=== PATIENT | female | born 1965 | race Caucasian/White ===

== ENCOUNTER 2016-12-01 12:56 | Observation (INO) ==
--- NOTE | 2016-12-01 13:19 | Emergency Department Note ---
Disposition Clinical Impression: Syncope Qualifiers: Syncope type: unspecified Qualified Code(s): R55 - Syncope and collapse Chest pain Qualifiers: Chest pain type: unspecified Qualified Code(s): R07.9 - Chest pain, unspecified Disposition: Admitted As Inpatient Condition: Fair Referrals: NONE,PCP [Primary Care Provider] - Forms: ED Satisfaction Letter Time of Disposition: 16:37 Syncope HPI - General Chief Complaint: ED Dizziness Stated Complaint: Dizzy Time Seen by Provider: 12/01/16 13:07 Source: patient, EMS Limitations: no limitations Nursing Notes Reviewed: Yes Vital Signs Reviewed: Yes - History of Present Illness HPI Narrative: 51-year-old who comes in with near syncopal episode while at work. Patient was seen here about a week ago for syncope 2. The patient was referred for follow- up but then had symptoms again today. Pt Subjective Complaint: felt faint, almost passed out Onset (ago): Just [employer]EST[employer] Prodromal Symptoms: lightheaded Witnessed: yes - by bystander Context: at rest Injuries Sustained Associated with Event: none Current Symptoms: back to baseline History: previous syncopal episode (A week ago) Treatments prior to arrival: none Associated trauma secondary to event: No - Related Data Previous Rx's Medication Instructions Recorded Hydrocodone/Acetaminophen [[place] 1 tab PO Q6H PRN #10 tab 01/13/15 5-325 Tablet] Ondansetron ODT [Zofran ODT] 4 mg SL Q4HR #7 tab.rapdis 01/13/15 Allergies Allergy/AdvReac Type Severity Reaction Status Date / Time albuterol Allergy Palpitation Verified 01/13/15 15:03 s Amoxicillin [From Augmentin] Allergy Anaphylaxis Verified 01/13/15 15:03 clavulanic acid Allergy Anaphylaxis Verified 01/13/15 15:03 [From Augmentin] metoclopramide [From Reglan] Allergy Confusion Verified 01/13/15 15:03 All systems ED: reviewed and negative except as stated. Constitutional: Denies: fever, chills, weakness, weight change Eyes: Denies: eye pain, eye discharge, vision change ENT ED: Denies: ear pain, throat pain, dental pain, hearing loss, epistaxis, congestion, dysphagia Cardiovascular: Reports: syncope. Denies: chest pain, palpitations, dyspnea on exertion, edema Respiratory: Denies: cough, dyspnea, wheezes, hemoptysis, stridor Gastrointestinal: Denies: abdominal pain, nausea, vomiting, diarrhea, constipation, hematemesis, melena, hematochezia Genitourinary: Denies: dysuria, frequency, hematuria, discharge Musculoskeletal: Denies: back pain, neck pain, arthralgia, myalgia Integumentary: Denies: rash, abrasion, lesions Neurological: Denies: headache, weakness, numbness, paresthesias, confusion, abnormal gait, vertigo Psychiatric: Denies: anxiety, depression, suicidal thoughts, homicidal thoughts , auditory hallucinations, visual hallucinations Endocrine: Denies: fatigue Hematological/Lymphatic: Denies: easy bleeding, easy bruising Allergic/Immunologic: Denies: facial swelling, urticaria Past Medical History - Past Medical History Medical history: Reports: hyperlipidemia, hypertension, migraine Surgical history: Reports: appendectomy, breast surgery, , cholecystectomy, hysterectomy Psychiatric history: Reports: anxiety, depression - Social History Smoking Status: Never smoker Smokeless Tobacco Status: No Alcohol use: Reports: none Drug use: Reports: none Physical Exam - General Limitations: no limitations General appearance: alert - Head Head exam: atraumatic, normocephalic, normal inspection - Eye Eye exam: Present: normal appearance, PERRL, EOMI - ENT ENT exam: normal exam, normal oropharynx, mucous membranes moist - Neck Neck exam: Present: normal inspection, full ROM, trachea midline - Chest Chest inspection: Present: normal inspection, symmetric chest wall rise - Respiratory Respiratory exam: Present: normal lung sounds bilaterally - Cardiovascular Cardiovascular exam: Present: regular rate, normal rhythm, normal heart sounds - Abdominal Exam Abdominal exam: Present: soft, Non-Tender. Absent: tenderness, distention, guarding, rebound, rigidity - Extremities Exam Extremities exam: Present: normal inspection, full ROM. Absent: tenderness, pedal edema - Expanded Lower Extremity Exam Neurovascular/Tendon exam: Absent: motor deficit, sensory deficit, tendon deficit Gait: not tested/not observed - Back Exam Back exam: Present: normal inspection, full ROM. Absent: tenderness - Neurological Exam Neurological exam: Present: alert, oriented X3 - Psychiatric Psychiatric exam: Present: normal affect, normal mood - Skin Skin exam: Present: warm, dry, intact, normal color Course - Reevaluation(s) Reevaluation #1: Patient is complaining of new chest pain. We'll add a d-dimer and obtain a repeat EKG. EKG shows no acute change from previous. Time: 14:24 Reevaluation #2: 51-year-old who comes in with reports of syncope last week and again today also with chest pain today her workup here included a negative troponin however her d -dimer was elevated. CT of the chest was obtained which was negative. Patient will be admitted for further evaluation and treatment. Time: 16:32 - Consultations Consultation #1: Discussed with Dr. Garland, admit. Time: 16:32 Consultation #2: Discussed with Dr. Garland, admit. Time: 17:11 Vital Signs Temperature 98.3 F 12/01/16 13:00 Pulse Rate 97 12/01/16 13:00 Respiratory Rate 16 12/01/16 13:00 Blood Pressure 152/85 12/01/16 13:00 O2 Sat by Pulse Oximetry 97 12/01/16 13:00 Temperature 98.3 F 12/01/16 13:00 Pulse Rate 84 12/01/16 17:05 Respiratory Rate 16 12/01/16 17:05 Blood Pressure 129/88 12/01/16 17:05 O2 Sat by Pulse Oximetry 97 12/01/16 17:05 Oxygen Delivery Oxygen Delivery Room Air Syncope - Lab Data Result diagrams: 12/01/16 13:35 12/01/16 13:35 Lab Results 12/01/16 12/01/16 12/01/16 Range/Units 13:35 13:35 13:35 WBC 7.5 (4.3-11.1) K/mcL RBC 4.79 (3.82-4.97) M/mcL Hgb 13.9 (11.5-15.4) g/dL Hct 40.6 (35.3-44.9) % MCV 84.8 (83.0-100.0) fL MCH 29.0 (28.0-33.3) pg MCHC 34.2 (31.6-35.5) g/dL RDW 12.6 (11.5-14.5) % Plt Count 290 (140-400) K/mcL MPV 9.7 (9.4-12.4) fL Immature Gran % 0.1 (0-4) % Seg Neutrophils % 64.8 % Lymphocytes % 27.1 % Monocytes % 6.6 % Eosinophils % 0.7 % Basophils % 0.7 % Neutrophils # 4.9 (1.6-8.9) K/mcL Lymphocytes # 2.0 (0.6-4.6) K/mcL Monocytes # 0.5 (0.0-1.3) K/mcL Eosinophils # 0.1 (0.0-0.6) K/mcL Basophils # 0.1 (0.0-0.2) K/mcL D-Dimer (0-500) ng/mLFEU Sodium 142 (136-145) mEq/L Potassium 3.1 L (3.5-4.5) mEq/L Chloride 103 (98-109) mEq/L Carbon Dioxide 30 H (19-29) mEq/L BUN 17 (7-20) mg/dL Creatinine 1.00 (0.57-1.11) mg/dL Est GFR ( Amer) > 60 (> 60) Est GFR (Non-Af Amer) 59 L (> 60) BUN/Creatinine Ratio 17 (6-26) Glucose 128 H (70-99) mg/dL Calculated Osmolality 297 (280-300) Calcium 9.5 (8.6-10.8) mg/dL Troponin I 0.01 (0-0.03) ng/mL 12/01/16 Range/Units 14:39 WBC (4.3-11.1) K/mcL RBC (3.82-4.97) M/mcL Hgb (11.5-15.4) g/dL Hct (35.3-44.9) % MCV (83.0-100.0) fL MCH (28.0-33.3) pg MCHC (31.6-35.5) g/dL RDW (11.5-14.5) % Plt Count (140-400) K/mcL MPV (9.4-12.4) fL Immature Gran % (0-4) % Seg Neutrophils % % Lymphocytes % % Monocytes % % Eosinophils % % Basophils % % Neutrophils # (1.6-8.9) K/mcL Lymphocytes # (0.6-4.6) K/mcL Monocytes # (0.0-1.3) K/mcL Eosinophils # (0.0-0.6) K/mcL Basophils # (0.0-0.2) K/mcL D-Dimer 839 H (0-500) ng/mLFEU Sodium (136-145) mEq/L Potassium (3.5-4.5) mEq/L Chloride (98-109) mEq/L Carbon Dioxide (19-29) mEq/L BUN (7-20) mg/dL Creatinine (0.57-1.11) mg/dL Est GFR ( Amer) (> 60) Est GFR (Non-Af Amer) (> 60) BUN/Creatinine Ratio (6-26) Glucose (70-99) mg/dL Calculated Osmolality (280-300) Calcium (8.6-10.8) mg/dL Troponin I (0-0.03) ng/mL - Radiology Data Radiology results reviewed: Yes I reviewed the patient's radiology results. Chest CTA 12/01/16 14:54 IMPRESSION: 1. No acute pulmonary emboli. 2. No acute pulmonary abnormality or findings concerning for thoracic metastasis. D/ / 12/01/2016 15:40:03 Yonis Ortega MD / klarissa Interpreting Provider: Yonis Ortega MD Brain MRI 12/01/16 13:08 IMPRESSION: Unremarkable MRI of the brain. No acute intracranial abnormality. D/ / Virgilio Childers MD / Virgilio Childers MD Interpreting Provider: Virgilio Childers MD Chest CTA 12/01/16 14:54 IMPRESSION: 1. No acute pulmonary emboli. 2. No acute pulmonary abnormality or findings concerning for thoracic metastasis. D/ / 12/01/2016 15:40:03 Yonis Ortega MD / klarissa Interpreting Provider: Yonis Ortega MD - EKG Data EKG attestation: Yes I reviewed and interpreted this EKG. EKG shows normal: sinus rhythm Rate: normal Rhythm: NSR [place]/QRS: left axis deviation Interpretation: no acute changes
[2016-12-01 13:42] LABS: Basophils # 0.1 K/mcL (0.0-0.2); Basophils % 0.7 %; Eosinophils # 0.1 K/mcL (0.0-0.6); Eosinophils % 0.7 %; Hematocrit 40.6 % (35.3-44.9); Hemoglobin 13.9 g/dL (11.5-15.4); Immature Granulocytes % 0.1 % (0-4); Lymphocytes % 27.1 %; Mean Corpuscular HGB Conc 34.2 g/dL (31.6-35.5); Mean Corpuscular Volume 84.8 fL (83.0-100.0); Mean Platelet Volume 9.7 fL (9.4-12.4); Monocytes # 0.5 K/mcL (0.0-1.3); Monocytes % 6.6 %; Neutrophils # 4.9 K/mcL (1.6-8.9); Platelet Count 290 K/mcL (140-400); Red Blood Count 4.79 M/mcL (3.82-4.97); Red Cell Distribution Width 12.6 % (11.5-14.5); Segmented Neutrophils % 64.8 %
[2016-12-01] MEDS ORDERED: Ondansetron 4 MG/2 ML VIAL IVP ONE ×2 (13:54→14:34)
[2016-12-01] MEDS ORDERED: *HR* HYDROmorphone (PF) 1 MG/ML SYRINGE IVP ONE (13:54)
[2016-12-01 13:57] LABS: BUN/Creatinine Ratio 17 (6-26); Blood Urea Nitrogen 17 mg/dL (7-20); Calcium 9.5 mg/dL (8.6-10.8); Carbon Dioxide 30 mEq/L (19-29); Chloride 103 mEq/L (98-109); Glucose 128 mg/dL (70-99); Osmolality,Calculated 297 (280-300); Potassium 3.1 mEq/L (3.5-4.5); Sodium 142 mEq/L (136-145); eGFR For African Americans > 60 (> 60); eGFR For Non-African Americans 59 (> 60)
[2016-12-01] MEDS ORDERED: *HR* Morphine 2 MG/ML SYRINGE IVP ONE ×2 (14:34→17:10)
[2016-12-01] MEDS ORDERED: *HR* Promethazine 25 MG/ML VIAL IVP ONE (16:14)
[2016-12-01] MEDS ORDERED: traMADol 50 MG TABLET PO PRN ×2 (22:12)
[2016-12-01] MEDS ORDERED: Ondansetron ODT 4 MG TAB.RAPDIS PO PRN (22:23)
[2016-12-01] MEDS ORDERED: Hyoscyamine SL 0.125 MG TAB.SUBL PO PRN (22:23)
[2016-12-01] MEDS ORDERED: Orphenadrine 100 MG TABLET.ER PO PRN (22:23)
[2016-12-01] MEDS ORDERED: MAXALT MLT 10 MG PO PRN (22:23)
[2016-12-01] MEDS ORDERED: Naloxone 0.4 MG/ML INJ IVP PRN ×2 (22:24→22:28)
--- NOTE | 2016-12-01 22:34 | Internal Med History&Physical ---
Date of Encounter: 12/01/16 Time of Encounter: 22:29 Assessment and Plan (1) Syncope Current visit: Yes Status: Acute syncope/pre-syncope eval. Replace K, Admit to r/o occult arrhythmias. Admit to tele, consult cards for further eval, if tele wnl, consider holter monitor, patient asking if she could get tilt testing inpatient Qualifiers: Syncope type: unspecified Qualified Code(s): R55 - Syncope and collapse (2) YENIFER (obstructive sleep apnea) Current visit: Yes Status: Acute continue CPAP in the evening. (3) HTN (hypertension) Current visit: Yes Status: Acute continue meds Qualifiers: Qualified Code(s): I15.0 - Renovascular hypertension (4) Migraine Current visit: Yes Status: Acute continue med Qualifiers: Qualified Code(s): G43.909 - Migraine, unspecified, not intractable, without status migrainosus (5) Depression Current visit: Yes Status: Acute continue med Qualifiers: Depression Type: other depression Qualified Code(s): F32.89 - Other specified depressive episodes Internal Medicine - H&P: HPI Chief complaint: Syncope, pre-syncope History of present illness: Ms. Oleary is a 51 year old female who presents with syncope/presyncope evaluation. She has a hx of YENIFER on CPAP, HTN, migraine, depression. She became symptomatic last where she syncopized and was found on the grass while going to work. There after, she developed a presyncopal episode that evening. She presented to the ED where she was hydrated and asked to follow up with her PCP. There were discussions for her to undergo outpatient tilt table testing and is pending pre-cert in the outpatient. 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 She then had a second episode at 130 pm where she gone into the break room for water and then to the bathroom when she felt dizzy agent. Denies vertiginous symptoms. Just dizzy. Past Med Surg Social Fam HX - Past Medical History Medical history: hyperlipidemia, hypertension, migraine Psychiatric history: anxiety, depression - Past Surgical History Surgical History: appendectomy, breast surgery, , cholecystectomy, hysterectomy - Social History Smoking Status: Never smoker Smokeless Tobacco Status: No Alcohol use: none Drug use: none - Additional Family History Additional family history: HTN Internal Medicine - H&P: Meds Bupropion HCl [Wellbutrin Xl] 300 mg PO QAM 12/01/16 [History] Hyoscyamine Sulfate [Hyoscyamine Sulfate] 0.125 mg PO Q6H PRN 12/01/16 [History] LORazepam [Ativan] 0.5 mg PO BID PRN 12/01/16 [History] Ondansetron HCl [Zofran] 4 mg PO TID PRN 12/01/16 [History] Orphenadrine Citrate 100 mg PO HS PRN 12/01/16 [History] Rizatriptan Benzoate [Maxalt Senior Contracts Manager] 10 mg PO DAILY PRN 12/01/16 [History] Topiramate [Topiramate] 50 mg PO DAILY 12/01/16 [History] Valsartan [Diovan] 80 mg PO DAILY 12/01/16 [History] Xyzal 5 mg PO QPM 12/01/16 [History] hydroCHLOROthiazide [Hydrochlorothiazide] 25 mg PO QAM 12/01/16 [History] Allergies albuterol Allergy (Verified 01/13/15 15:03) Palpitations Amoxicillin [From Augmentin] Allergy (Verified 01/13/15 15:03) Anaphylaxis clavulanic acid [From Augmentin] Allergy (Verified 01/13/15 15:03) Anaphylaxis metoclopramide [From Reglan] Allergy (Verified 01/13/15 15:03) Confusion All Systems PM: A 10-system review of systems was performed and is negative for pertinent findings except as documented above in the HPI. Review of systems: ROS 14 point review of systems reviewed as best as possible given presentation. Pertinent positive or negative as per HPI or otherwise reviewed as negative - Constitutional Vitals: Temp Pulse Resp BP Pulse Ox 97.8 F 73 16 112/68 97 12/01/16 18:42 12/01/16 18:42 12/01/16 18:42 12/01/16 18:42 12/01/16 18:42 Exam: General - AAO x 3 Psych - Appropriate affect/speech. No agitation Eyes - [place]. Eye lids intact. No scleral icterus ENT - Oral mucosa pink, dentition intact. External ear clear/dry/intact. No thyromegaly Lymphatics - No cervical/inguinal lympadenopathy Neuro - No gross peripheral or central neuro deficits with intact CN 2-12 exam Heart - Sinus. RRR. S1 and S2 present. No added HS/murmurs appreciated. No elevated JVD appreciated. No calf swellings/erythema Lung - Adequate air entry b/l, No crackes/wheezes appreciated GI - Soft, non-tender. No hepatosplenomegaly/ascites. BS+ - No CVA/suprapubic tenderness or palpable bladder distension Skin - Intact. No rash/petechiae/ecchymosis. Warm extremities MSK - Joints with normal ROM. No joint swellings Internal Med - H&P Results - Labs CBC & Chem 7: 12/01/16 13:35 12/01/16 13:35
[2016-12-01] MEDS: *HR* LORazepam 0.5 MG TABLET PO PRN (22:42)
[2016-12-01] MEDS: Ondansetron 4 MG/2 ML VIAL IVP PRN (22:42)
[2016-12-02] MEDS ORDERED: Valsartan 80 MG TABLET PO ONE (00:30)
[2016-12-02] MEDS: 0.9 % Sodium Chloride 1,000 ML IVC SCH ×3 (00:40→21:52)
[2016-12-02] MEDS ORDERED: *HR* OxyCODONE/APAP 5/325 TABLET PO PRN (02:18)
[2016-12-02] MEDS: *HR* Enoxaparin 40 MG/0.4 ML SYRINGE SQ SCH (06:01)
[2016-12-02 06:29] LABS: Bilirubin,Urine Negative (Negative); Blood,Urine Negative (Negative); Clarity,Urine Clear (Clear); Color,Urine Yellow (Yellow); Glucose,Urine (UA) Normal (Normal); Ketones,Urine Negative (Negative); Leukocyte Esterase,Urine Negative (Negative); Nitrite,Urine Negative (Negative); Protein,Urine Negative (Neg-Trace); Specific Gravity,Urine > 1.030 (1.010-1.025); Urobilinogen,Urine Normal (Normal)
[2016-12-02 06:36] LABS: Hematocrit 38.9 % (35.3-44.9); Hemoglobin 12.5 g/dL (11.5-15.4); Immature Platelets 2.1 % (1.1-6.1); Mean Corpuscular HGB Conc 32.1 g/dL (31.6-35.5); Mean Corpuscular Volume 87.2 fL (83.0-100.0); Mean Platelet Volume 9.9 fL (9.4-12.4); Red Blood Count 4.46 M/mcL (3.82-4.97); Red Cell Distribution Width 13.2 % (11.5-14.5)
[2016-12-02] MEDS: BuPROPion XL (24 HR) 150 MG TABLET PO SCH (08:33)
[2016-12-02] MEDS: Topiramate 25 MG TABLET PO SCH (08:33)
[2016-12-02] MEDS: Ondansetron 4 MG/2 ML VIAL IVP PRN (08:51)
[2016-12-02] MEDS ORDERED: hydroCHLOROthiazide 25 MG TABLET PO SCH (09:00)
[2016-12-02] MEDS ORDERED: Valsartan 80 MG TABLET PO SCH ×2 (09:00→21:00)
[2016-12-02 09:25] LABS: Alanine Aminotransferase 17 Units/L (0-55); Albumin 3.1 g/dL (3.5-5.0); Albumin/Globulin Ratio 0.9 (1.1-2.2); Alkaline Phosphatase 102 Units/L (38-126); Aspartate Amino Transferase 19 Units/L (5-34); BUN/Creatinine Ratio 17 (6-26); Blood Urea Nitrogen 17 mg/dL (7-20); Calcium 8.8 mg/dL (8.6-10.8); Carbon Dioxide 18 mEq/L (19-29); Chloride 110 mEq/L (98-109); Globulin 3.3 g/dL (2.4-3.5); Glucose 136 mg/dL (70-99); Magnesium 2.1 mg/dL (1.6-2.6); Osmolality,Calculated 296 (280-300); Potassium 3.6 mEq/L (3.5-4.5); Sodium 141 mEq/L (136-145); Total Protein 6.4 g/dL (6.0-8.3); eGFR For African Americans > 60 (> 60); eGFR For Non-African Americans 59 (> 60)
[2016-12-02 09:26] LABS: Bilirubin,Total < 0.3 mg/dL (0.2-1.2)
[2016-12-02] MEDS ORDERED: Promethazine 25 MG in 0.9 % Sodium Chloride 50 ML IVPB ONE (11:20)
[2016-12-02] MEDS ORDERED: Ketorolac 30 MG/ML VIAL IM ONE (11:20)
[2016-12-02] MEDS ORDERED: Ketorolac 30 MG/ML VIAL IVP ONE (11:23)
[2016-12-02] MEDS: *HR* LORazepam 0.5 MG TABLET PO PRN ×2 (12:20→23:45)
--- NOTE | 2016-12-02 14:51 | Cardiology Consult Note ---
Date of Encounter: 12/02/16 Time of Encounter: 12:00 Assessment and Plan (1) Syncope Current Visit: Yes Status: Acute Patient reports having an episode of syncope followed by 2 episodes of pre syncope. Incidentally, she was just recently started on CPAP for YENIFER about 2 weeks ago and her HCTZ was increased. Both of which can aid in diuresis. May consider volume depletion in the differential. Recommend stopping HCTZ. Otherwise, she has not demonstrated dysrhythmia while here and her averge HR has been in the 60's. Troponin negative during most recent ER visit and also at this visit. Ok to trend troponins. Replete potassium. There are no ischemic ECG findings. I recommend an echo for review of structure and function. She already has a tilt test ordered as an outpatient. Will observe her over the next 24h on telemetry. If workup is unremarkable, can consider sending her home on an extended monitor. Of note, she is also on multiple neurologic altering medications - ativan, zofran, topamax, xyzal and buproprion. May consider further workup in that regard. Qualifiers: Syncope type: unspecified Qualified Code(s): R55 - Syncope and collapse Discussion w patient/family: The assessment and plan as outlined above was discussed with the patient and/or family members who expressed understanding and agreement. All questions were answered. Thank you for involving us in the care of your patient. Please call with any questions. History of Present Illness Consult date: 12/02/16 Requesting physician: Veronica Miranda Consult reason: syncope Chief complaint: syncope History of present illness: Ms. Oleary is a 51 year old female presenting with reports of syncope. The patient states that she was in her usual state of health until last when she was walking to her car and woke up on the ground. She doesn't remember much about the event. She doesn't remember having chest pain or palpitations. She remember checking her BP after getting value around 140's with HR low 100's. She did not seek medical treatment at that time. She was then doing ok until another event where she felt "weird" and "funny" as if she was going to pass out. However, she denied syncope at that time. 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 She came into the ER then - I reviewed ER note. ECG without acute findings, HR [address] head negative. She was discharged home. Yesterday, while at work she felt lightheaded and "asked for an ativan." BP's 140s and HR 128 bpm per report. Of note, her HCTZ was recently increased and she started CPAP about 2 weeks ago. At the bedside, the patient reports having a migraine - which she gets occasionally. She has no other complaints at this time. Past Med Surg Social Fam HX - Past Medical History Attestation: Yes The following information was validated with the patient. Medical history: hyperlipidemia, hypertension, migraine Psychiatric history: anxiety, depression - Past Surgical History Surgical History: appendectomy, breast surgery, , cholecystectomy, hysterectomy - Social History Smoking Status: Never smoker Smokeless Tobacco Status: No Alcohol use: none Drug use: none Medications and Allergies Bupropion HCl [Wellbutrin Xl] 300 mg PO QAM 12/01/16 [History] Hyoscyamine Sulfate [Hyoscyamine Sulfate] 0.125 mg PO Q6H PRN 12/01/16 [History] LORazepam [Ativan] 0.5 mg PO BID PRN 12/01/16 [History] Ondansetron HCl [Zofran] 4 mg PO TID PRN 12/01/16 [History] Orphenadrine Citrate 100 mg PO HS PRN 12/01/16 [History] Rizatriptan Benzoate [Maxalt Embossing Calender Operator] 10 mg PO DAILY PRN 12/01/16 [History] Topiramate [Topiramate] 50 mg PO DAILY 12/01/16 [History] Valsartan [Diovan] 80 mg PO DAILY 12/01/16 [History] Xyzal 5 mg PO QPM 12/01/16 [History] hydroCHLOROthiazide [Hydrochlorothiazide] 25 mg PO QAM 12/01/16 [History] Allergies albuterol Allergy (Verified 01/13/15 15:03) Palpitations Amoxicillin [From Augmentin] Allergy (Verified 01/13/15 15:03) Anaphylaxis clavulanic acid [From Augmentin] Allergy (Verified 01/13/15 15:03) Anaphylaxis metoclopramide [From Reglan] Allergy (Verified 01/13/15 15:03) Confusion All Systems Review: A 10-system review of systems was performed and is negative for pertinent findings except as documented above in the HPI. Physical Examination Vital Signs, Last 4 Hours Temp Pulse Resp BP Pulse Ox 12/02/16 12:24 97.5 F L 58 15 105/76 98 General: Conversant, No Apparent Distress HEENT: Atraumatic, Normocephaly, Mucus Membranes Moist Neck: No JVD, Normal carotid pulses Cardiac: Reg Rate and Rhythm, Normal S1 and S2, No Murmur Lungs: Normal Breath Sounds, No Wheeze, Rales, Rhonchi Neuro: Alert and responsive, No focal deficits noted Abdomen: Soft, Non-Tender, Other (normal bowel sounds) Extremities: Other (no significant LE edema, 2+ distal pulses, 1+ left radial pulse symmetric with right radial pulse) Results 12/02/16 06:00 12/02/16 06:00 Lab Results 12/02/16 12/02/16 06:00 06:00 WBC 6.3 Hgb 12.5 Hct 38.9 Plt Count 279 Sodium 141 Potassium 3.6 Chloride 110 H Carbon Dioxide 18 L BUN 17 Creatinine 0.99 Glucose 136 H Calcium 8.8 Magnesium 2.1 Total Bilirubin < 0.3 AST 19 ALT 17 Alkaline Phosphatase 102 - Imaging and Cardiology Chest Xray: report reviewed Other Results: CT head reviewed, CTA reviewed - EKG Interpretation EKG results cardiology: personally reviewed (ECGs from admission were reviewed demonstrating sinus tachycardia without acute findings), other (telemetry demonstrates average HR 69 bpm, no dysrhythmia) Consult Discharge Plan - Plan Referrals: NONE,PCP [Primary Care Provider] -
--- NOTE | 2016-12-02 15:34 | Internal Med Progress Note ---
Date of Encounter: 12/02/16 Time of Encounter: 15:32 - Assessment and plan (1) Syncope Current Visit: Yes Status: Acute Assessment and plan: so far negative troponin no acute EKG changes no arrhythmias noticed will check 2 D Ehco and Carotid doppler Her MRI of Brain - negative for ischemia cont ASA Held diuretics cont gentle hydration WIll do orhtostats daily Qualifiers: Syncope type: unspecified Qualified Code(s): R55 - Syncope and collapse (2) YENIFER (obstructive sleep apnea) Current Visit: Yes Status: Acute Assessment and plan: use home CPAP QHS (3) HTN (hypertension) Current Visit: Yes Status: Acute Assessment and plan: stable BP resumed home meds Qualifiers: Qualified Code(s): I15.0 - Renovascular hypertension (4) Migraine Current Visit: Yes Status: Acute Assessment and plan: on Migraine cocktail Qualifiers: Qualified Code(s): G43.909 - Migraine, unspecified, not intractable, without status migrainosus - Subjective Interval history: Ms. Oleary is a 51 year old female who presents with syncope/presyncope evaluation. She has a hx of YENIFER on CPAP, HTN, migraine, depression. She became symptomatic last where she syncopized and was found on the grass while going to work. There after, she developed a presyncopal episode that evening. She presented to the ED where she was hydrated and asked to follow up with her PCP. There were discussions for her to undergo outpatient tilt table testing and is pending pre-cert in the outpatient. 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 She then had a second episode at 130 pm where she gone into the break room for water and then to the bathroom when she felt dizzy agent. Denies vertiginous symptoms. Just dizzy. Pt denied any more dizzy spells, no CP / SOB. - Constitutional Vitals: Temp Pulse Resp BP Pulse Ox 97.5 F L 58 15 105/76 98 12/02/16 12:24 12/02/16 12:24 12/02/16 12:24 12/02/16 12:24 12/02/16 12:24 General appearance: Present: A&O X 3 - Head Head exam: Present: atraumatic, normal inspection - Respiratory Respiratory exam: Present: CTAB. Absent: accessory muscle use, rales, respiratory distress, rhonchi, wheezes - Cardiovascular Cardiovascular exam: Present: RRR, +S1, +S2. Absent: diastolic murmur, gallop, rubs, systolic murmur - GI/Abdominal GI/Abdominal exam: Present: soft. Absent: distended, rebound, rigid, tenderness - Extremities Exam Extremities exam: Absent: calf tenderness, pedal edema, tenderness - Neurological Exam Neurological exam: Present: alert, oriented X3 - Psychiatric Psychiatric exam: Present: normal affect, normal mood Internal Medicine: Result - Labs CBC & Chem 7: 12/02/16 06:00 12/02/16 06:00 Labs: Short CBC 12/02/16 Range/Units 06:00 WBC 6.3 (4.3-11.1) K/mcL Hgb 12.5 (11.5-15.4) g/dL Hct 38.9 (35.3-44.9) % Plt Count 279 (140-400) K/mcL BMP 12/02/16 06:00 Sodium 141 Potassium 3.6 Chloride 110 H Carbon Dioxide 18 L BUN 17 Creatinine 0.99 Glucose 136 H Calcium 8.8 Liver Function 12/02/16 Range/Units 06:00 Total Bilirubin < 0.3 (0.2-1.2) mg/dL AST 19 (5-34) Units/L ALT 17 (0-55) Units/L Alkaline Phosphatase 102 (38-126) Units/L Albumin 3.1 L (3.5-5.0) g/dL Urine 12/02/16 Range/Units 06:11 Urine Color Yellow (Yellow) Urine Clarity Clear (Clear) Urine pH 6.0 (5.0-8.0) pH Units Ur Specific [place] > 1.030 H (1.010-1.025) Urine Protein Negative (Neg-Trace) mg/dL Urine Glucose (UA) Normal (Normal) mg/dL - ABG Interpretation ABG results: PT/INR, D-dimer D-Dimer 839 ng/mLFEU (0-500) H 12/01/16 14:39 Consult Discharge Plan - Plan Referrals: NONE,PCP [Primary Care Provider] -
[2016-12-02] MEDS ORDERED: Acetaminophen/Butalbital/CaffeineTABLET PO ONE (23:38)
[2016-12-03] MEDS ORDERED: Promethazine 25 MG in 0.9 % Sodium Chloride 50 ML IVPB ONE ×2 (00:19→01:00)
[2016-12-03] MEDS ORDERED: Ketorolac 30 MG/ML VIAL IVP ONE (00:19)
[2016-12-03] MEDS ORDERED: *HR* Promethazine 25 MG/ML VIAL IV ONE (00:30)
[2016-12-03] MEDS: *HR* Enoxaparin 40 MG/0.4 ML SYRINGE SQ SCH (06:31)
--- NOTE | 2016-12-03 08:30 | Cardiology Progress Note ---
Date of Encounter: 12/03/16 Time of Encounter: 06:50 Assessment and Plan (1) Syncope Current Visit: Yes Status: Acute Patient reports having an episode of syncope followed by 2 episodes of pre syncope. Incidentally, she was just recently started on CPAP for YENIFER about 2 weeks ago and her HCTZ was increased. Both of which can aid in diuresis. May consider volume depletion in the differential. Recommend stopping HCTZ. Telemetry reviewed, no dysrhythmia while here and her averge HR has been in the 60's. Troponin negative during most recent ER visit and also at this visit There are no ischemic ECG findings. Tilt test ordered as an outpatient. Echo pending. Recommend HM at discharge. Cardiology will sign-off, will arrange for follow-up in the outpatient setting. Qualifiers: Syncope type: unspecified Qualified Code(s): R55 - Syncope and collapse Discussion w patient/family: The assessment and plan as outlined above was discussed with the patient and/or family members who expressed understanding and agreement. All questions were answered. Thank you for involving us in the care of your patient. Please call with any questions. The patient was discussed and reviewed with Dr. Hamilton, Cardiology will sign- off. Subjective Principal diagnosis: Pre-syncope Interval history: Seen and examined. No events overnight. States feels groggy this AM. Objective General: Conversant, No Apparent Distress HEENT: Atraumatic, Normocephaly, Mucus Membranes Moist Neck: No JVD, Normal carotid pulses Cardiac: Reg Rate and Rhythm, Normal S1 and S2, No Murmur Lungs: Normal Breath Sounds, No Wheeze, Rales, Rhonchi Neuro: Alert and responsive, No focal deficits noted Abdomen: Soft, Non-Tender Skin: No rashes noted on visualized skin Musculoskeletal: No Chest Wall Tenderness Extremities: No Clubbing, No Cyanosis, No Edema, Normal Pulses Results 12/02/16 06:00 12/02/16 06:00 Lab Results 12/02/16 06:00 Sodium 141 Potassium 3.6 Chloride 110 H Carbon Dioxide 18 L BUN 17 Creatinine 0.99 Glucose 136 H Calcium 8.8 Magnesium 2.1 Total Bilirubin < 0.3 AST 19 ALT 17 Alkaline Phosphatase 102 Active Medications Bupropion HCl (Wellbutrin Xl) 300 mg PO QAM [facility] Stop: 06/03/17 09:01 Last Admin: 12/02/16 08:33 Dose: 300 mg Enoxaparin Sodium (Lovenox) 40 mg SQ 0600 JAMES PRN Reason: Protocol Stop: 06/03/17 06:01 Last Admin: 12/03/16 06:31 Dose: 40 mg Hyoscyamine (Levsin Sl) 0.125 mg PO Q6H PRN PRN Reason: Cramping Sodium Chloride (0.9 % Sodium Chloride) 1,000 mls @ 100 mls/hr IVC .Q10H JAMES Stop: 06/02/17 22:31 Last Admin: 12/02/16 21:52 Dose: 100 mls/hr Lorazepam (Ativan) 0.5 mg PO BID PRN PRN Reason: Anxiety Stop: 06/02/17 22:24 Last Admin: 12/02/16 23:45 Dose: 0.5 mg Naloxone HCl (Narcan) 0.4 mg IVP Q2MIN PRN PRN Reason: Opioid Reversal Stop: 06/02/17 22:25 Naloxone HCl (Narcan) 0.4 mg IVP Q2MIN PRN PRN Reason: Opioid Reversal Stop: 06/02/17 22:29 Ondansetron HCl (Zofran) 4 mg IVP Q4HR PRN; Protocol PRN Reason: Nausea And Vomiting Stop: 06/03/17 00:01 Last Admin: 12/02/16 08:51 Dose: 4 mg Ondansetron HCl (Zofran Odt) 4 mg PO TID PRN PRN Reason: Nausea Orphenadrine Citrate (Norflex) 100 mg PO HS PRN PRN Reason: Muscle Spasm Stop: 06/02/17 22:24 Oxycodone/Acetaminophen (Percocet 5/325) 1 each PO Q6HR PRN PRN Reason: Pain Stop: 06/03/17 02:19 Last Admin: 12/02/16 06:01 Dose: 1 each Pharmacy Profile Note (Patient Taking Own Medication) 1 each PO DAILY PRN PRN Reason: Migraine Headache Pharmacy Profile Note (Patient Taking Own Medication) 1 each PO QPM JAMES Stop: 06/03/17 18:01 Last Admin: 12/02/16 20:56 Dose: Not Given Topiramate (Topamax) 50 mg PO DAILY JAMES Stop: 06/03/17 09:01 Last Admin: 12/02/16 08:33 Dose: 50 mg Tramadol HCl (Ultram) 50 mg PO Q4HR PRN PRN Reason: Pain Stop: 06/02/17 22:13 Tramadol HCl (Ultram) 100 mg PO Q4H PRN PRN Reason: Pain Stop: 06/02/17 22:13 Last Admin: 12/01/16 22:42 Dose: 100 mg Valsartan (Diovan) 80 mg PO HS JAMES Stop: 06/03/17 21:01 Last Admin: 12/02/16 21:52 Dose: 80 mg - Imaging and Cardiology Echo: pending Other Results: 12 hour tele: avg HR=69 SR. No significant pause/event noted. - EKG Interpretation EKG results cardiology: personally reviewed Consult Discharge Plan - Plan Referrals: NONE,PCP [Primary Care Provider] -
[2016-12-03] MEDS: Topiramate 25 MG TABLET PO SCH (09:50)
[2016-12-03] MEDS: BuPROPion XL (24 HR) 150 MG TABLET PO SCH (09:51)
--- NOTE | 2016-12-03 12:11 | Electrocardiograph Report ---
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
--- NOTE | 2016-12-03 12:19 | Electrocardiograph Report ---
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
--- NOTE | 2016-12-03 13:38 | Carotid Imaging Report ---
Carotid Duplex Patient Name:Abdoul Oleary Order Number:[id number] Procedure Date:12/03/2016 Date:1965Age:51 yrs Gender:Female Rt.BP:108 / 75 mmHgHeart Rate: Location:[facility] Room #: 3B55 Order Dispatcher Chief:Maine Briceño RVT Referring MD:Melina Zuleta MD development representative:None Reading MD:Kg Win MD , FACS Primary Indications:syncope Risk Factors Yes/No Hypertension Yes Anticoagulants Yes Impressions: Findings: Bilateral carotid systems essentially normal. Findings Carotid Duplex: [place] scale imaging combined with Doppler flow analysis suggests normal findings bilaterally. Prior Study: No prior study available for comparison. Carotid Results Right PSV EDV Assessment Proximal CCA 97 24 Normal Mid CCA 85 28 Normal Distal CCA 71 23 Normal Bifurcation 68 24 Normal Proximal ICA 91 21 Normal Mid ICA 105 39 Normal Distal ICA 70 25 Normal ECA 54 0 Normal Vertebral Artery 54 15 Antegrade Flow Left PSV EDV Assessment Proximal CCA 81 22 Normal Mid CCA 73 22 Normal Distal CCA 79 24 Normal Bifurcation 56 26 Normal Proximal ICA 70 32 Normal Mid ICA 68 29 Normal Distal ICA 87 35 Normal ECA 76 9 Normal Vertebral Artery 51 14 Antegrade Flow Ratio's Right ICA/CCA Ratio: 1.23 ICA/CCA Values: 105/85 Left ICA/CCA Ratio: 1.19 ICA/CCA Values: 87/73 Updated by Kg Win MD, FACS on 12/03/2016 1:32:41 PM Kg Win MD electronically signed on 12/03/2016 1:32:56 PM with status of Final
--- NOTE | 2016-12-03 16:42 | Discharge Summary ---
Date of Encounter: 12/03/16 Time of Encounter: 16:35 - Discharge Diagnosis (1) Syncope Priority: Primary Status: Acute Qualifiers: Syncope type: unspecified Qualified Code(s): R55 - Syncope and collapse (2) YENIFER (obstructive sleep apnea) Priority: Secondary Status: Acute (3) HTN (hypertension) Priority: Secondary Status: Acute Qualifiers: Qualified Code(s): I15.0 - Renovascular hypertension (4) Migraine Priority: Secondary Status: Acute Qualifiers: Qualified Code(s): G43.909 - Migraine, unspecified, not intractable, without status migrainosus - Discharge Medications Home Medications: Bupropion HCl [Wellbutrin Xl] 300 mg PO QAM 12/01/16 [History] Hyoscyamine Sulfate [Hyoscyamine Sulfate] 0.125 mg PO Q6H PRN 12/01/16 [History] LORazepam [Ativan] 0.5 mg PO BID PRN 12/01/16 [History] Ondansetron HCl [Zofran] 4 mg PO TID PRN 12/01/16 [History] Orphenadrine Citrate 100 mg PO HS PRN 12/01/16 [History] Rizatriptan Benzoate [Maxalt Hand Winder] 10 mg PO DAILY PRN 12/01/16 [History] Topiramate [Topiramate] 50 mg PO DAILY 12/01/16 [History] Valsartan [Diovan] 80 mg PO DAILY 12/01/16 [History] Xyzal 5 mg PO QPM 12/01/16 [History] Allergies/Adverse Reactions: Allergies albuterol Allergy (Verified 01/13/15 15:03) Palpitations Amoxicillin [From Augmentin] Allergy (Verified 01/13/15 15:03) Anaphylaxis clavulanic acid [From Augmentin] Allergy (Verified 01/13/15 15:03) Anaphylaxis metoclopramide [From Reglan] Allergy (Verified 01/13/15 15:03) Confusion Procedures/tests Complete & Pending: Procedures Performed prior 72 hours Category Date Time Status ECG 48 holter monitor setup [ECG] Routine Y 12/03/16 08:45 Ordered EV carotid duplex imaging BI Routine Y 12/03/16 15:21 Completed EV echocardiogram Routine Y 12/03/16 15:21 Completed Date of admission: 12/01/16 17:26 Primary care physician: PCP NONE Consults: 12/01/16 22:28 Consult to Cardiology [CONS] Routine Comment: Consulting Provider: Cardiology Yasmin Reason for Consult: syncope, presyncope eval Call Completed: No - Patient Status Disposition: Home, Self-Care Condition: Good Overall status at discharge: patient is back to baseline - Discharge Instructions Follow Up With: NONE,PCP [Primary Care Provider] - Additional Instructions: Need to f/u with PCP in one week Need to f/u with Cardiology in 1-2 weeks Need to call Neurologist Dr. Raúl Mendoza office @ [phone] on Sunday to make an appointment - Diet and Activity Activity: increase activity as tolerated Diet: low salt diet Hospital course: Ms. Oleary is a 51 year old female who presents with syncope/presyncope evaluation. She has a hx of YENIFER on CPAP, HTN, migraine, depression. She became symptomatic last where she syncopized and was found on the grass while going to work. There after, she developed a pre syncopal episode that evening. She presented to the ED where she was hydrated and asked to follow up with her PCP. There were discussions for her to undergo outpatient tilt table testing and is pending pre-cert in the outpatient. 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 She then had a second episode at 130 pm where she gone into the break room for water and then to the bathroom when she felt dizzy agent. Denies vertiginous symptoms. Just dizzy. Pt was admitted here for further evaluation. 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 She was seen environmental marketer who recommend out pt holter monitor and tilt test. She also had 2 D Echo done which did not show any acute abnormalities. She had MRI of Brain done which did not show any acute ischemic / infraction. No signs of MS. She had elevated D Dimer in the ER for which they checked CTA which came back as negative for PE. She denied any pain in her legs, no calf tenderness noticed. She wanted to go to [facility] for further care regarding her dizziness. I reached to [facility] , they hospitalist team did not accept her transfer since it is not medically necessary. However since her PCP already sent some information to neurologist Dr. Raúl Mendoza from [place] ,I requested her to call their office on Sunday make an appointment. Dr. Mendoza already knows about current situation. So will d/c her home now with holter monitor. Also recommend stop taking her HCTZ until she sees her PCP. - Time Spent with Patient Total time spent providing and/or coordinating discharge services: - Constitutional Vitals: Temp Pulse Resp BP Pulse Ox 98.2 F 69 16 128/73 98 12/03/16 11:24 12/03/16 11:24 12/03/16 11:24 12/03/16 11:24 12/03/16 11:24 General appearance: Present: A&O X 3 - Head Head exam: Present: atraumatic, normal inspection - Respiratory Respiratory exam: Present: CTAB. Absent: accessory muscle use, rales, rhonchi, wheezes - Cardiovascular Cardiovascular exam: Present: RRR, +S1, +S2. Absent: diastolic murmur, gallop, rubs, systolic murmur - GI/Abdominal GI/Abdominal exam: Present: soft. Absent: rebound, rigid, tenderness - Extremities Exam Extremities exam: Absent: calf tenderness, pedal edema, tenderness - Neurological Exam Neurological exam: Present: alert, normal gait, oriented X3, strengths equal and symetr throughout. Absent: no focal deficits, pronater drift, facial droop , speech deficit - Psychiatric Psychiatric exam: Present: anxious
[2016-12-03 16:44] VITALS: BP 129/76
--- NOTE | 2016-12-06 21:22 | Holter Monitor Report ---
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 Average HR was 77. Minimum HR of 48 occurred at 08:59D3 and maximum HR of 131 occurred at 18:28D1. Ventricular Ectopy consisted of 0. Supraventricular Ectopy consisted of 2 total beats. There is 0 evidence of any pauses or bradycardia events. Impression: 1.) Sinus rhythm. Average heart rate = 77 bpm. 2.) No arrhythmias. 3.) No significant ectopy. 4.) Symptoms correlate with sinus rhythm. Electronically Signed On 12-06-2016 21:20:53 EDT by Marcus Sandvoal MD
== END 2016-12-03 18:10 | disposition home or self-care (01) ==
LOC: 3BNU 12:56 → EMEROO 12:56 → 3BNU 18:11
PROVIDERS: ADMIT Internal Medicine Endocrinology, Diabetes & Metabolism; ATTEND Nurse Practitioner Family

== ENCOUNTER 2017-11-26 08:57 | Inpatient (IN) ==
[2017-11-26] MEDS ORDERED: Ondansetron 4 MG/2 ML VIAL IVP ONE ×2 (09:16→10:51)
[2017-11-26] MEDS ORDERED: *HR* FentaNYL (PF) 100 MCG/2 ML VIAL IVP ONE ×2 (09:16→10:51)
--- NOTE | 2017-11-26 09:27 | Emergency Department Note ---
Disposition Clinical Impression: Small bowel obstruction Disposition: Admitted As Inpatient Condition: Fair General Adult HPI - General Chief complaint: ED Abdominal Pain Stated complaint: ABD Pain Time Seen by Provider: 11/26/17 09:07 Source: patient, family Limitations: no limitations Nursing Notes Reviewed: Yes Vital Signs Reviewed: Yes - History of Present Illness Pain Scale: 9 - Related Data Home Medications Medication Instructions Recorded Confirmed LORazepam [Ativan] 0.5 mg PO BID PRN 12/01/16 11/26/17 Ondansetron HCl [Zofran] 4 mg PO TID PRN 12/01/16 11/26/17 Tizanidine HCl 2 mg PO HS PRN 12/27/16 11/26/17 hydroCHLOROthiazide 25 mg PO DAILY 12/27/16 11/26/17 [Hydrochlorothiazide] Losartan Potassium [Cozaar] 50 mg PO DAILY PRN 11/26/17 11/26/17 Allergies Allergy/AdvReac Type Severity Reaction Status Date / Time albuterol Allergy Palpitation Verified 12/27/16 09:24 s Amoxicillin [From Augmentin] Allergy Anaphylaxis Verified 12/27/16 09:24 clavulanic acid Allergy Anaphylaxis Verified 12/27/16 09:24 [From Augmentin] metoclopramide [From Reglan] Allergy Confusion Verified 12/27/16 09:24 Past Medical History - Past Medical History Medical history: Reports: asthma, hyperlipidemia, hypertension, kidney stones, migraine Surgical history: Reports: appendectomy, breast surgery, , cholecystectomy, hysterectomy Psychiatric history: Reports: anxiety, depression - Social History Smoking Status: Never smoker Smokeless Tobacco Status: No Alcohol use: Reports: none Drug use: Reports: none Physical Exam - General Limitations: no limitations General appearance: alert, in no apparent distress Course Vital Signs Temperature 97.9 F 11/26/17 09:03 Pulse Rate 81 11/26/17 09:03 Respiratory Rate 18 11/26/17 09:03 Blood Pressure 124/86 11/26/17 09:03 O2 Sat by Pulse Oximetry 99 11/26/17 09:03 Temperature 97.9 F 11/26/17 09:20 Pulse Rate 76 11/26/17 10:31 Respiratory Rate 18 11/26/17 10:31 Blood Pressure 116/80 11/26/17 10:31 O2 Sat by Pulse Oximetry 99 08/06/18 10:31 Oxygen Delivery Oxygen Delivery Room Air Medical Decision Making - Lab Data Result diagrams: 11/26/17 09:50 11/26/17 09:50 Lab Results 11/26/17 11/26/17 11/26/17 Range/Units 09:50 09:50 10:49 WBC 7.9 (4.3-11.1) K/mcL RBC 5.40 H (3.82-4.97) M/mcL Hgb 15.6 H (11.5-15.4) g/dL Hct 45.6 H (35.3-44.9) % MCV 84.4 (83.0-100.0) fL MCH 28.9 (28.0-33.3) pg MCHC 34.2 (31.6-35.5) g/dL RDW 13.0 (11.5-14.5) % Plt Count 262 (140-400) K/mcL MPV 10.4 (9.4-12.4) fL Immature Gran % 0.3 (0-4) % Seg Neutrophils % 75.5 % Lymphocytes % 16.8 % Monocytes % 6.6 % Eosinophils % 0.4 % Basophils % 0.4 % Neutrophils # 6.0 (1.6-8.9) K/mcL Lymphocytes # 1.3 (0.6-4.6) K/mcL Monocytes # 0.5 (0.0-1.3) K/mcL Eosinophils # 0.0 (0.0-0.6) K/mcL Basophils # 0.0 (0.0-0.2) K/mcL Sodium 137 (136-145) mEq/L Potassium 3.6 (3.5-5.1) mEq/L Chloride 102 (98-107) mEq/L Carbon Dioxide 24 (23-29) mEq/L BUN 20 (6-20) mg/dL Creatinine 0.94 (0.60-1.20) mg/dL Est GFR ( Amer) > 60 (> 60) Est GFR (Non-Af Amer) > 60 (> 60) BUN/Creatinine Ratio 21 (6-26) Glucose 135 H (70-105) mg/dL Calculated Osmolality 289 (280-300) Calcium 9.7 (8.6-10.3) mg/dL Total Bilirubin 0.5 (0.3-1.0) mg/dL Direct Bilirubin 0.1 (0.0-0.2) mg/dL Indirect Bilirubin 0.4 (0.0-1.2) mg/dL AST 17 (13-39) Units/L ALT 19 (7-52) Units/L Alkaline Phosphatase 79 (34-104) Units/L Troponin I < 0.03 (< 0.04) ng/mL Serum Total Protein 7.1 (6.4-8.9) g/dL Albumin 4.2 (3.5-5.7) g/dL Globulin 2.9 (2.4-3.5) g/dL Albumin/Globulin Ratio 1.4 (1.1-2.2) Lipase 5 L (11-82) Units/L Urine Color Yellow (Yellow) Urine Clarity Clear (Clear) Urine pH 8.0 (5.0-8.0) pH Units Ur Specific [place] > 1.030 H (1.010-1.025) Urine Protein Trace (Neg-Trace) mg/dL Urine Glucose (UA) Normal (Normal) mg/dL Urine Ketones Trace H (Negative) mg/dL Urine Blood Negative (Negative) Urine Nitrite Negative (Negative) Urine Bilirubin Negative (Negative) Urine Urobilinogen Normal (Normal) mg/dL Ur Leukocyte Esterase Negative (Negative) Urine Microscopic RBC 5-15 H (0-3) per hpf Urine Microscopic WBC 0-3 (0-3) per hpf Ur Squamous Epith Cells Moderate H (None-Few) per lpf Urine Bacteria None Seen (None-Few) per hpf Hyaline Casts None Seen (None-Few) per lpf Ur Culture Indicated? NO (NO) Attestation Statement - Attestation Attestation: This documentation is done with the assistance of Dragon dictation. Despite efforts made to ensure accuracy, there may be inaccuracies in credit adjuster or spelling and typographical errors. I examined this patient and my medical decision-making was reviewed with the Resident Physician. I agree with the documented findings, disposition and treatment plan as described except to the extent set forth below. Patient seen and evaluated by Dr. Goodrich and myself, I agree with her evaluation and management plan, I supervised the care the patient's stay. Patient denies abdominal pain which is been going on for less than 24 hours. Some nausea no vomiting no back pain no chest pain today. She said the pain did not feel like is going up to her chest. EKG lab workup CT and reassess.
--- NOTE | 2017-11-26 09:38 | Emergency Department Note ---
Disposition Clinical Impression: Small bowel obstruction Disposition: Admitted As Inpatient Condition: Fair Referrals: Jayy Al MD [Primary Care Provider] - Forms: ED Satisfaction Letter, Work/School Release Time of Disposition: 10:53 General Adult HPI - General Chief complaint: ED Abdominal Pain Stated complaint: ABD Pain Time Seen by Provider: 11/26/17 09:07 Source: patient, family Mode of arrival: wheelchair Limitations: no limitations Nursing Notes Reviewed: Yes Vital Signs Reviewed: Yes - History of Present Illness HPI Narrative: 52-year-old female with significant past medical history of migraine presenting to the emergency department with chief complaint of abdominal pain. Patient states this morning around 2 AM she started having severe diffuse abdominal pain. Discloses nausea but denies any vomiting. Denies diarrhea. Patient states this is never happened before. Patient has had an appendectomy, cholecystectomy, hysterectomy. Patient states she has a prescription for Zofran but has not tried anything at home for this. Denies any fevers, dizziness or syncope. Denies any sick contacts. Patient states while coming into the emergency department her abdominal pain started radiating up to her chest. Patient denies any cardiac history. Pain Scale: 9 - Related Data Home Medications Medication Instructions Recorded Confirmed Bupropion HCl [Wellbutrin Xl] 300 mg PO QAM 12/01/16 12/27/16 Hyoscyamine Sulfate 0.125 mg PO Q6H PRN 12/01/16 12/27/16 LORazepam [Ativan] 0.5 mg PO BID PRN 12/01/16 12/27/16 Ondansetron HCl [Zofran] 4 mg PO TID PRN 12/01/16 12/27/16 Rizatriptan Benzoate [[employer]] 10 mg PO DAILY PRN 12/01/16 12/27/16 Topiramate 50 mg PO DAILY 12/01/16 12/27/16 Valsartan [Diovan] 80 mg PO DAILY 12/01/16 12/27/16 Tizanidine HCl 2 mg PO HS PRN 12/27/16 12/27/16 hydroCHLOROthiazide 25 mg PO DAILY 12/27/16 12/27/16 [Hydrochlorothiazide] Previous Rx's Medication Instructions Recorded Azithromycin [Azithromycin 6-Tab 250 mg PO PER PKG DI #6 tab 04/14/17 Pack] Benzonatate [Tessalon] 200 mg PO TID PRN #20 capsule 04/14/17 predniSONE [PredniSONE] 20 mg PO BID #10 tablet 04/14/17 Allergies Allergy/AdvReac Type Severity Reaction Status Date / Time albuterol Allergy Palpitation Verified 12/27/16 09:24 s Amoxicillin [From Augmentin] Allergy Anaphylaxis Verified 12/27/16 09:24 clavulanic acid Allergy Anaphylaxis Verified 12/27/16 09:24 [From Augmentin] metoclopramide [From Reglan] Allergy Confusion Verified 12/27/16 09:24 All systems ED: reviewed and negative except as stated. Constitutional: Denies: fever, chills, weakness Eyes: Reports: as per HPI ENT ED: Reports: as per HPI Cardiovascular: Reports: chest pain. Denies: palpitations, dyspnea on exertion Respiratory: Denies: cough, dyspnea, wheezes Gastrointestinal: Reports: abdominal pain, nausea. Denies: vomiting, diarrhea Genitourinary: Denies: urgency, dysuria, frequency Musculoskeletal: Reports: as per HPI Integumentary: Denies: rash, abrasion Neurological: Denies: weakness, numbness, paresthesias Psychiatric: Reports: as per HPI Endocrine: Reports: as per HPI Hematological/Lymphatic: Reports: as per HPI Allergic/Immunologic: Reports: as per HPI Past Medical History - Past Medical History Attestation: Yes The following information was validated with the patient. Medical history: Reports: asthma, hyperlipidemia, hypertension, kidney stones, migraine Surgical history: Reports: appendectomy, breast surgery, , cholecystectomy, hysterectomy Psychiatric history: Reports: anxiety, depression - Social History Smoking Status: Never smoker Smokeless Tobacco Status: No Alcohol use: Reports: none Drug use: Reports: none Physical Exam - General Limitations: no limitations General appearance: alert, in no apparent distress - Head Head exam: atraumatic, normocephalic, normal inspection - Eye Eye exam: Present: normal appearance. Absent: scleral icterus, conjunctival injection - ENT ENT exam: normal exam, mucous membranes moist - Neck Neck exam: Present: normal inspection, full ROM. Absent: tenderness, meningismus - Chest Chest inspection: Present: normal inspection, symmetric chest wall rise. Absent : tenderness, rash - Respiratory Respiratory exam: Present: normal lung sounds bilaterally. Absent: respiratory distress, wheezes - Cardiovascular Cardiovascular exam: Present: regular rate, normal rhythm, normal heart sounds - Abdominal Exam Abdominal exam: Present: soft, tenderness (Diffuse tenderness to superficial and deep palpation), rebound, scar. Absent: distention, guarding, rigidity, pulsatile mass, hernia - Extremities Exam Extremities exam: Present: normal inspection, full ROM - Neurological Exam Neurological exam: Present: alert, oriented X3 - Psychiatric Psychiatric exam: Present: normal affect, normal mood - Skin Skin exam: Present: warm, intact Course Course Narrative: 52-year-old female presenting to the emergency department chief complaint of abdominal pain. Patient states her abdominal pain is now radiating into her chest. We will perform an abdominal workup including CBC, CMP and lipase along with a CT of abdomen and pelvis. We will also perform a cardiac workup due to patient's chest pain. We will obtain an EKG and troponin. Patient is alert and oriented 3 and room stable vital signs. Disposition pending results. Patient agrees with this plan. - Reevaluation(s) Reevaluation #1: Patient's laboratory analysis benign. CT of abdomen and pelvis shows small bowel obstruction. Patient has responded well to Zofran and fentanyl. No emesis in the emergency department. I spoke with the surgeon medical oncologist Dr. west who is aware of the case. I then spoke with the hospitalist on-call Dr. Juarez who agrees to accept the patient at this time. We will make the patient nothing by mouth and provide her with maintenance IV fluids. She is alert and oriented 3 in the room with stable vital signs. Patient agrees with this plan. Vital Signs Temperature 97.9 F 11/26/17 09:03 Pulse Rate 81 11/26/17 09:03 Respiratory Rate 18 11/26/17 09:03 Blood Pressure 124/86 11/26/17 09:03 O2 Sat by Pulse Oximetry 99 11/26/17 09:03 Temperature 97.9 F 11/26/17 09:20 Pulse Rate 76 11/26/17 10:31 Respiratory Rate 18 11/26/17 10:31 Blood Pressure 116/80 11/26/17 10:31 O2 Sat by Pulse Oximetry 99 11/26/17 10:31 Oxygen Delivery Oxygen Delivery Room Air Medical Decision Making - Lab Data Result diagrams: 11/26/17 09:50 11/26/17 09:50 Lab Results 11/26/17 11/26/17 Range/Units 09:50 09:50 WBC 7.9 (4.3-11.1) K/mcL RBC 5.40 H (3.82-4.97) M/mcL Hgb 15.6 H (11.5-15.4) g/dL Hct 45.6 H (35.3-44.9) % MCV 84.4 (83.0-100.0) fL MCH 28.9 (28.0-33.3) pg MCHC 34.2 (31.6-35.5) g/dL RDW 13.0 (11.5-14.5) % Plt Count 262 (140-400) K/mcL MPV 10.4 (9.4-12.4) fL Immature Gran % 0.3 (0-4) % Seg Neutrophils % 75.5 % Lymphocytes % 16.8 % Monocytes % 6.6 % Eosinophils % 0.4 % Basophils % 0.4 % Neutrophils # 6.0 (1.6-8.9) K/mcL Lymphocytes # 1.3 (0.6-4.6) K/mcL Monocytes # 0.5 (0.0-1.3) K/mcL Eosinophils # 0.0 (0.0-0.6) K/mcL Basophils # 0.0 (0.0-0.2) K/mcL Sodium 137 (136-145) mEq/L Potassium 3.6 (3.5-5.1) mEq/L Chloride 102 (98-107) mEq/L Carbon Dioxide 24 (23-29) mEq/L BUN 20 (6-20) mg/dL Creatinine 0.94 (0.60-1.20) mg/dL Est GFR ( Amer) > 60 (> 60) Est GFR (Non-Af Amer) > 60 (> 60) BUN/Creatinine Ratio 21 (6-26) Glucose 135 H (70-105) mg/dL Calculated Osmolality 289 (280-300) Calcium 9.7 (8.6-10.3) mg/dL Total Bilirubin 0.5 (0.3-1.0) mg/dL Direct Bilirubin 0.1 (0.0-0.2) mg/dL Indirect Bilirubin 0.4 (0.0-1.2) mg/dL AST 17 (13-39) Units/L ALT 19 (7-52) Units/L Alkaline Phosphatase 79 (34-104) Units/L Troponin I < 0.03 (< 0.04) ng/mL Serum Total Protein 7.1 (6.4-8.9) g/dL Albumin 4.2 (3.5-5.7) g/dL Globulin 2.9 (2.4-3.5) g/dL Albumin/Globulin Ratio 1.4 (1.1-2.2) Lipase 5 L (11-82) Units/L - EKG Data EKG #1 EKG attestation: Yes I reviewed and interpreted this EKG. EKG results narrative: Sinus rhythm. 70 beats for minute. OH interval 153, QRS 98, QTc 411. No signs of acute ST segment elevation or ischemia.
[2017-11-26 10:00] LABS: Basophils % 0.4 %; Eosinophils % 0.4 %; Hematocrit 45.6 % (35.3-44.9); Hemoglobin 15.6 g/dL (11.5-15.4); Immature Granulocytes % 0.3 % (0-4); Lymphocytes # 1.3 K/mcL (0.6-4.6); Lymphocytes % 16.8 %; Mean Corpuscular HGB Conc 34.2 g/dL (31.6-35.5); Mean Corpuscular Hemoglobin 28.9 pg (28.0-33.3); Mean Corpuscular Volume 84.4 fL (83.0-100.0); Mean Platelet Volume 10.4 fL (9.4-12.4); Monocytes # 0.5 K/mcL (0.0-1.3); Monocytes % 6.6 %; Platelet Count 262 K/mcL (140-400); Segmented Neutrophils % 75.5 %
[2017-11-26 10:24] LABS: Troponin I < 0.03 ng/mL (< 0.04)
[2017-11-26 10:25] LABS: Alanine Aminotransferase 19 Units/L (7-52); Albumin 4.2 g/dL (3.5-5.7); Albumin/Globulin Ratio 1.4 (1.1-2.2); Alkaline Phosphatase 79 Units/L (34-104); Aspartate Amino Transferase 17 Units/L (13-39); BUN/Creatinine Ratio 21 (6-26); Bilirubin,Direct 0.1 mg/dL (0.0-0.2); Bilirubin,Indirect 0.4 mg/dL (0.0-1.2); Bilirubin,Total 0.5 mg/dL (0.3-1.0); Blood Urea Nitrogen 20 mg/dL (6-20); Calcium 9.7 mg/dL (8.6-10.3); Carbon Dioxide 24 mEq/L (23-29); Chloride 102 mEq/L (98-107); Globulin 2.9 g/dL (2.4-3.5); Glucose 135 mg/dL (70-105); Lipase 5 Units/L (11-82); Osmolality,Calculated 289 (280-300); Potassium 3.6 mEq/L (3.5-5.1); Sodium 137 mEq/L (136-145); Total Protein 7.1 g/dL (6.4-8.9); eGFR For Non-African Americans > 60 (> 60)
[2017-11-26 11:00] LABS: Bilirubin,Urine Negative (Negative); Blood,Urine Negative (Negative); Clarity,Urine Clear (Clear); Color,Urine Yellow (Yellow); Glucose,Urine (UA) Normal (Normal); Ketones,Urine Trace mg/dL (Negative); Leukocyte Esterase,Urine Negative (Negative); Nitrite,Urine Negative (Negative); Protein,Urine Trace mg/dL (Neg-Trace); Specific Gravity,Urine > 1.030 (1.010-1.025); Urobilinogen,Urine Normal (Normal)
[2017-11-26] MEDS ORDERED: 0.9 % Sodium Chloride 1,000 ML IVC SCH (11:00)
[2017-11-26 11:04] LABS: Bacteria,Urine None Seen per hpf (None-Few); Hyaline Casts,Urine None Seen per lpf (None-Few); Squamous Epithelial Cell,Urine Moderate per lpf (None-Few); WBC,Urine 0-3 per hpf (0-3)
[2017-11-26] MEDS ORDERED: Naloxone 0.4 MG/ML INJ IVP PRN (12:00)
[2017-11-26] MEDS ORDERED: NON-FORMULARY MEDICATION 1 EACH EACH (Losartan Potassium [Cozaar] 50 MG) PO PRN (12:06)
[2017-11-26] MEDS ORDERED: 0.9 % Sodium Chloride w KCl 20 MEQ/1,000 ML MLS IVC SCH (12:15)
--- NOTE | 2017-11-26 13:18 | Internal Med History&Physical ---
Date of Encounter: 11/26/17 Time of Encounter: 13:00 Internal Medicine - H&P: HPI Chief complaint: ABD PAIN WITH N/V Admitted From: Home Plans for Post Hospital Care: Home History of present illness: Ms. Oleary is a 52 year old female. It was a last night around 2 AM, when she felt like she was ready to move her bowels. She could not do that; took 2 tablets of her stool softener. Shortly after she developed diffuse abdominal pain with nausea. The pain was getting progressively worse. She vomited a few times in the emergency department. This patient suffers from migraine headaches. It was on November 14 when she was put on Aimovig. She has not had any headache has since then. However, one of the side effects of that medication is constipation. The patient had cholecystectomy and appendectomy in the past. I saw this patient in the late morning. She feels better. She had a liquid bowel movement a couple hours ago. She is treated for migraine headaches. He is also treated for depression, anxiety and ADHD. She does not have any history of bowel obstruction. She felt normal yesterday. Review of systems: All 14 organ systems were reviewed by me with the patient. Positive and pertinent negative findings are listed above. The rest of organ systems is negative. Physical Exam: Skin: Free of rash and discoloration. Eyes: Sclera is white. There is no discharge from eyes. ENMT: Oral/pharyngeal mucosa is normal in appearance. There is no discharge from nose or ears. Respiratory: Normal breath sounds with no crackles and wheezes bilaterally. CV: Heart is regular with no gallop or murmur. GI: Abdomen is flat and soft with no palpable mass or visceromegaly. : There is diffuse mild/moderate tenderness in all 4 quadrants. I cannot feel any mass or visceromegaly. Neuro exam: He has good strength in upper and lower extremities. He has normal eye movements. Psychiatric: He has normal affect. His thought process is appropriate to the situation. A/P: Small bowel obstruction. It is likely secondary to adhesions; triggered by constipation caused by her new migraine headache controlling medication. CT of abdomen and pelvis are shows a dilated small bowel loops with a transition point in the pelvis. Her WBC is normal. Her potassium is 3.6. UA shows normal findings. We will keep her on nothing by mouth diet and IV fluids with addition of potassium chloride. General surgery is consulted. Migraine headaches. She will be not taking her new medications to control them at this time. We will take a more precautionary measures when restarting it in the future. Depression with anxiety/ADHD. Under control. We will continue previously used medications. Past Med Surg Social Fam HX - Past Medical History Medical history: asthma, hyperlipidemia, hypertension, kidney stones, migraine Additional medical history: Patient believes asthma is related to her previous medications and has had no issues with it within last 10 years. Psychiatric history: anxiety, depression - Past Surgical History Surgical History: appendectomy, breast surgery, , cholecystectomy, hysterectomy Additional surgical history: breast reduction, tummy tuck, salpingoopherectomy, wisdom teeth, tubal, toe surgery, lysis of adhesions, cystoscopy - Social History Smoking Status: Never smoker Smokeless Tobacco Status: No Alcohol use: none Drug use: none - Family History Mother Adopted: [place]: Mayra Oleary Age: 74 Living Status: Still Living Hx Family Cardiac Disorders: Yes (Hypertension, AAA, 2 Stents.) Hx Family Respiratory Disorders: No Hx Family Cancer: Yes (Skin) Hx Family GI Disorders: Yes (Stomach Ulcers,) Internal Medicine - H&P: Meds LORazepam [Ativan] 0.5 mg PO BID PRN 12/01/16 [History] Ondansetron HCl [Zofran] 4 mg PO TID PRN 12/01/16 [History] Tizanidine HCl 2 mg PO HS PRN 12/27/16 [History] hydroCHLOROthiazide [Hydrochlorothiazide] 25 mg PO DAILY 12/27/16 [History] Losartan Potassium [Cozaar] 50 mg PO DAILY PRN 11/26/17 [History] 3 Allergy/AdvReac Type Severity Reaction Status Date / Time albuterol Allergy Palpitation Verified 12/27/16 09:24 s Amoxicillin [From Augmentin] Allergy Anaphylaxis Verified 12/27/16 09:24 clavulanic acid Allergy Anaphylaxis Verified 12/27/16 09:24 [From Augmentin] metoclopramide [From Reglan] Allergy Confusion Verified 12/27/16 09:24 - Constitutional Vitals: Temp Pulse Resp BP Pulse Ox 98.7 F 59 14 104/65 97 11/26/17 12:28 11/26/17 12:28 11/26/17 12:28 11/26/17 12:28 11/26/17 12:28 General appearance: Present: A&O X 3, no acute distress, answers questions appropriately Internal Med - H&P Results - Labs CBC & Chem 7: 11/27/17 06:31 11/27/17 06:31 - Assessment and plan (1) Small bowel obstruction Current Visit: Yes Status: Acute (2) Migraine Current Visit: No Status: Chronic Qualifiers: Migraine type: unspecified Status migrainosus presence: without status migrainosus Intractability: not intractable Qualified Code(s): G43.909 - Migraine, unspecified, not intractable, without status migrainosus (3) Depression with anxiety Current Visit: Yes Status: Chronic - Time Spent With Patient Total time spent is greater than 50% in coordination of care (as documented) at patient's floor/unit and/or counseling patient: Greater than 35 minutes
[2017-11-26] MEDS ORDERED: *HR* HYDROcodone/Acet 5/325 mg TABLET PO PRN (16:18)
[2017-11-26] MEDS ORDERED: Hydrocortisone Rectal 2.5% CRM 28 GM TUBE RC PRN (16:22)
[2017-11-26] MEDS: Ondansetron 4 MG/2 ML VIAL IVP PRN ×2 (16:49→23:55)
--- NOTE | 2017-11-26 18:24 | General Surgery Consult Note ---
Date of Encounter: 11/26/17 Time of Encounter: 17:15 History of Present Illness Consult date: 11/26/17 Reason for consult: abdominal pain (possible SBO) Requesting physician: Magalie Goodrich History of present illness: 52-year-old female referred for further surgical evaluation regarding new onset abdominal pain, nausea and vomiting. Patient describes onset of diffuse abdominal pain with nausea approximately 0200 hrs. Several hours later the patient describes severe cramping abdominal pain, nearly doubling her over, nausea and vomiting. Patient presented to the emergency department for further evaluation and treatment. Lab work is notable for white count 7.9 hemoglobin 15.6, hematocrit 45.6 with normal differential. Electrolytes, BUN, creatinine are within normal limits. LFTs were also within normal limits. Urinalysis notable for specific gravity greater than 1.030; trace urine, trace ketones, 5- 15 RBC/hpf and 0-3 WBC/hpf . CT abdomen and pelvis was personally reviewed. Findings include: Dilated, fluid-filled proximal small bowel with an apparent transition zone in the pelvis. This transition zone is thought to be most likely the distal jejunum or ileum. The colon is decompressed and filled with stool. Past medical history: Migraines, depression, anxiety, ADHD; patient describes an intentional 70 pound weight loss in the past year with severe: Restriction to 1200 rafaela per day and almost daily trips to the gym Surgical history: Laparoscopic appendectomy, laparoscopic cholecystectomy, laparoscopic hysterectomy, abdominoplasty, eyelid lift secondary to complications of administration of Botox; correction of hammertoe. Allergies: Albuterol which causes palpitations; amoxicillin (Augmentin) - anaphylaxis; metoclopramide which causes confusion/mental status changes Medications: Lorazepam 0.5 mg by mouth twice a day when necessary Ondansetron 4 mg by mouth 3 times a day as needed for N/V Tizanidine 2 mg by mouth daily at bedtime as needed Hydrochlorothiazide 25 mg by mouth daily Losartan 50 mg by mouth when necessary Social history: Patient G2, P2; patient denies any smoking history; no alcohol use or illicit drug use. Patient employed [employer] [place] Family history: Noncontributory Physical examination: Age-appropriate woman resting comfortably in her hospital bed. She was just given Zofran. 1.57 m tall, 88.45 kg, BMI 35.7 The patient has been afebrile, 98.1, pulse 70 and regular, respirations 15, blood pressure 102/61. SPO2 on room air 95% Skin: Warm, no obvious jaundice Cardiac: Regular rate, no appreciable murmur Lungs: Clear to auscultation; no obvious abdominal pain on deep inspiration Abdomen: Obese, soft with minimal suprapubic tenderness. No obvious intra- abdominal masses. No peritoneal signs or rebound. Active bowel sounds. Since her presentation to the emergency department - the abdominal pain has subsided, the patient has experienced several diarrheal BMs. As a result of this diarrhea the patient is complaining of burning rectal pain. No detected blood per rectum. Extremities: No obvious clubbing, cyanosis or edema. Impression: 52-year-old female admitted to [facility] after presenting to the emergency department with severe cramping abdominal pain, nausea and vomiting. Radiographic evidence is suggestive of small bowel obstruction, however, since presentation to the emergency department patient has experienced several episodes diarrhea. Labs ( H&H 15.6/45.6) consistent with dehydration. Potassium is borderline low otherwise labs are normal. Possible acute gastroenteritis v SBO Recommendation: Increase IV fluids to 125 mL per hour Decrease narcotic pain meds as much as possible. Acute abdominal series in a.m. I will follow along with you and make further recommendations of the patient' s condition dictates. Past Med Surg Social Fam HX - Past Medical History Medical history: asthma, hyperlipidemia, hypertension, kidney stones, migraine Additional medical history: Patient believes asthma is related to her previous medications and has had no issues with it within last 10 years. Psychiatric history: anxiety, depression - Past Surgical History Surgical History: appendectomy, breast surgery, , cholecystectomy, hysterectomy Additional surgical history: breast reduction, tummy tuck, salpingoopherectomy, wisdom teeth, tubal, toe surgery, lysis of adhesions, cystoscopy - Social History Smoking Status: Never smoker Smokeless Tobacco Status: No Alcohol use: none Drug use: none - Family History Mother Adopted: [place]: Mayra Oleary Age: 74 Living Status: Still Living Hx Family Cardiac Disorders: Yes (Hypertension, AAA, 2 Stents.) Hx Family Respiratory Disorders: No Hx Family Cancer: Yes (Skin) Hx Family GI Disorders: Yes (Stomach Ulcers,) Medications and Allergies LORazepam [Ativan] 0.5 mg PO BID PRN 12/01/16 [History] Ondansetron HCl [Zofran] 4 mg PO TID PRN 12/01/16 [History] Tizanidine HCl 2 mg PO HS PRN 12/27/16 [History] hydroCHLOROthiazide [Hydrochlorothiazide] 25 mg PO DAILY 12/27/16 [History] Losartan Potassium [Cozaar] 50 mg PO DAILY PRN 11/26/17 [History] 3 Allergy/AdvReac Type Severity Reaction Status Date / Time albuterol Allergy Palpitation Verified 12/27/16 09:24 s Amoxicillin [From Augmentin] Allergy Anaphylaxis Verified 12/27/16 09:24 clavulanic acid Allergy Anaphylaxis Verified 12/27/16 09:24 [From Augmentin] metoclopramide [From Reglan] Allergy Confusion Verified 12/27/16 09:24 Review of Systems All systems PM: The remainder of the systems were reviewed and are negative General Surgery Exam Initial Vital Signs Temp Pulse Resp BP Pulse Ox 97.9 F 81 18 124/86 99 11/26/17 09:03 11/26/17 09:03 11/26/17 09:03 11/26/17 09:03 11/26/17 09:03 Exam Initial Vital Signs Temp Pulse Resp BP Pulse Ox 97.9 F 81 18 124/86 99 11/26/17 09:03 11/26/17 09:03 11/26/17 09:03 11/26/17 09:03 11/26/17 09:03 Results - Labs 11/26/17 09:50 11/26/17 09:50 Abnormal lab results RBC 5.40 M/mcL (3.82-4.97) H 11/26/17 09:50 Hgb 15.6 g/dL (11.5-15.4) H 11/26/17 09:50 Hct 45.6 % (35.3-44.9) H 11/26/17 09:50 Glucose 135 mg/dL (70-105) H 11/26/17 09:50 Lipase 5 Units/L (11-82) L 11/26/17 09:50 Ur Specific [place] > 1.030 (1.010-1.025) H 11/26/17 10:49 Urine Ketones Trace mg/dL (Negative) H 11/26/17 10:49 Urine Microscopic RBC 5-15 per hpf (0-3) H 11/26/17 10:49 Ur Squamous Epith Cells Moderate per lpf (None-Few) H 11/26/17 10:49 All other labs normal. Consult Discharge Plan - Plan Referrals: Jayy Al MD [Primary Care Provider] -
[2017-11-26] MEDS: Hydrocortisone Acetate 25 MG RECTAL SUPPOSITORY RC SCH (20:08)
[2017-11-26] MEDS: *HR* OxyCODONE Immed Rel 5 MG TABLET PO PRN (20:09)
[2017-11-26] MEDS: 0.9 % Sodium Chloride w KCl 20 MEQ/1,000 ML MLS IVC SCH (22:38)
[2017-11-27] MEDS: Ondansetron 4 MG/2 ML VIAL IVP PRN (06:53)
[2017-11-27] MEDS: 0.9 % Sodium Chloride w KCl 20 MEQ/1,000 ML MLS IVC SCH (06:53)
[2017-11-27 07:13] LABS: Basophils % 0.6 %; Eosinophils # 0.1 K/mcL (0.0-0.6); Eosinophils % 2.1 %; Hematocrit 39.7 % (35.3-44.9); Immature Granulocytes % 0.2 % (0-4); Lymphocytes # 2.3 K/mcL (0.6-4.6); Lymphocytes % 47.4 %; Mean Corpuscular Hemoglobin 28.1 pg (28.0-33.3); Mean Corpuscular Volume 85.2 fL (83.0-100.0); Mean Platelet Volume 10.4 fL (9.4-12.4); Monocytes # 0.4 K/mcL (0.0-1.3); Monocytes % 8.7 %; Platelet Count 237 K/mcL (140-400); Red Blood Count 4.66 M/mcL (3.82-4.97); Red Cell Distribution Width 13.2 % (11.5-14.5)
[2017-11-27 07:24] LABS: BUN/Creatinine Ratio 13 (6-26); Blood Urea Nitrogen 11 mg/dL (6-20); Calcium 8.1 mg/dL (8.6-10.3); Carbon Dioxide 25 mEq/L (23-29); Chloride 112 mEq/L (98-107); Glucose 93 mg/dL (70-105); Magnesium 2.3 mg/dL (1.6-2.6); Osmolality,Calculated 291 (280-300); Potassium 4.1 mEq/L (3.5-5.1); Sodium 141 mEq/L (136-145); eGFR For Non-African Americans > 60 (> 60)
[2017-11-27] MEDS: hydroCHLOROthiazide 25 MG TABLET PO SCH (07:32)
[2017-11-27 07:40] LABS: Hemoglobin 13.1 g/dL (11.5-15.4)
[2017-11-27] MEDS ORDERED: 0.9 % Sodium Chloride 1,000 ML IVC SCH (09:15)
[2017-11-27] MEDS ORDERED: Ketorolac 30 MG/ML VIAL IVP PRN (09:43)
[2017-11-27] MEDS ORDERED: *HR* Promethazine 25 MG/ML VIAL IVP PRN (09:45)
[2017-11-27] MEDS: Hydrocortisone Acetate 25 MG RECTAL SUPPOSITORY RC SCH (09:49)
[2017-11-27] MEDS: *HR* OxyCODONE Immed Rel 5 MG TABLET PO PRN (10:20)
--- NOTE | 2017-11-27 11:02 | Internal Med Progress Note ---
Hospitalist Progress Note - Encounter Date of Encounter: 11/27/17 Time of Encounter: 09:30 - Subjective Interval History: Patient complaining of cramping abdominal pain along with nausea. She feels very hungry. She has not had a bowel movement since 4 PM last night. Underwent acute abdominal series x-rays this morning. - Exam Vitals: Temp Pulse Resp BP Pulse Ox 97.9 F 60 14 119/73 97 11/27/17 10:10 11/27/17 10:10 11/27/17 10:10 11/27/17 10:10 11/27/17 10:10 Exam: General: Patient is alert, moderate distress, oriented x 3 Head: atraumatic, normocephalic, Eye: normal appearance, PERRL, no scleral icterus, no conjunctival injection ENT: mucous membranes moist, normal external ear exam Neck: normal inspection, trachea midline, full ROM, no carotid bruits Chest: normal inspection, symmetric chest rise Respiratory: Good respiratory effort. Normal breath sounds. No wheezing or crackles.. Cardiovascular: Regular rate and rhythm. s1 and s2 No clicks, rubs, gallops, or murmors. No pedal edema Abdomen: Abdomen is soft, generalized tenderness. Bowel sounds are diminished Musculoskeletal: Spontaneously moving all extremities. Skin: warm, dry, intact. Diminished Neuro: Alert oriented x 3 normal cranial nerves, no focal deficits Psych: Patient's affect is normal - Assessment and Plan (1) Small bowel obstruction Current Visit: Yes Status: Acute Assessment and Plan: Suspected small bowel obstruction. However patient did have diarrhea yesterday. Not had any more bowel movements since 4 PM yesterday evening. Acute abdominal series x-rays done. Results are currently pending. Surgery is following. Continue to keep nothing by mouth. Treat underlying abdominal pain and nausea symptomatically. (2) Migraine Current Visit: No Status: Chronic Assessment and Plan: Treat symptomatically. Place patient on Toradol as needed (3) Depression with anxiety Current Visit: Yes Status: Chronic Assessment and Plan: Continue Ativan at home dose DVT Prophylaxis: SCD - Time Spent with Patient Total time spent is greater than 50% in coordination of care (as documented) at patient's floor/unit and/or counseling patient: Internal Medicine: Result - Labs CBC & Chem 7: 11/27/17 06:31 11/27/17 06:31 Labs: Short CBC 11/27/17 Range/Units 06:31 WBC 4.8 (4.3-11.1) K/mcL Hgb 13.1 D (11.5-15.4) g/dL Hct 39.7 (35.3-44.9) % Plt Count 237 (140-400) K/mcL Neutrophils # 2.0 (1.6-8.9) K/mcL BMP 11/27/17 06:31 Sodium 141 Potassium 4.1 Chloride 112 H Carbon Dioxide 25 BUN 11 Creatinine 0.87 Glucose 93 Calcium 8.1 L Consult Discharge Plan - Plan Referrals: Jayy Al MD [Primary Care Provider] - (2) Migraine Qualifiers: Migraine type: unspecified Status migrainosus presence: without status migrainosus Intractability: not intractable Qualified Code(s): G43.909 - Migraine, unspecified, not intractable, without status migrainosus
--- NOTE | 2017-11-27 15:09 | General Surgery Progress Note ---
Date of Encounter: 11/27/17 Time of Encounter: 14:45 Subjective Patient reports: feels better Narrative: General Surgery - Patient feeling better; no further complaints of abdominal pain, no nausea or vomiting. Patient c/o being hungry. Diarrhea has also stopped; last bowel movement last evening. Patient has remained afebrile, currently 97.9, hemodynamically stable with a pulse of 64, respirations 16, blood pressure 122/67. Lungs: Clear, no obvious abdominal pain with deep inspiration or cough Abdomen: Soft, nontender. Previous elicited suprapubic pain no longer present. Active bowel sounds. No rebound or peritoneal signs. Urine output: Approximately 500 mL for this calendar day Laboratories: White count 4.8, hemoglobin 13.1 with hematocrit 39.7 (reflective of IV fluids administered since admission); differential within normal limits Borderline hypokalemia addressed. Potassium 4.1, her electrolytes within an acceptable range Acute abdominal series: Clear lung stout; dangle mildly dilated air-filled loop of small bowel left midabdomen. Normal colonic gas pattern. Impression: Resolved abdominal pain, nausea/vomiting. Possible small bowel obstruction - if one exists, most likely related to previous history of pelvic surgery/hysterectomy Plan: Small bowel follow-through If no evidence of small bowel obstruction - patient may resume diet and be discharged home Discussed with Dr. Mendoza Objective Vital Signs - Last 8 Hours Temp Pulse Resp BP Pulse Ox 11/27/17 14:46 97.9 F 64 16 122/67 95 11/27/17 10:10 97.9 F 60 14 119/73 97 Intake and Output 11/26/17 11/27/17 11/27/17 23:59 07:59 15:59 Intake Total 1000 / 1000 1000 / 1000 107 / 107 Output Total 0 / 0 500 / 500 Balance 1000 / 1000 500 / 500 107 / 107 Intake: IV Fluids 1000 / 1000 1000 / 1000 107 / 107 KCl 20 mEq in 0.9% Sodium 1000 / 1000 1000 / 1000 107 / 107 Chloride 20 meq In 1,000 ml @ 125 mls/hr IVC .Q8H JAMES Rx#: [id number] Oral 0 / 0 0 / 0 Output: Urine 0 / 0 500 / 500 Other: Meal NPO LUNCH Stool Consistency liquid # Voids 3 1 1 # Bowel Movements 3 0 Weight 88.6 kg Blood Glucose* 78 81 83 - Labs 11/27/17 06:31 11/27/17 06:31 Diabetes panel 11/27/17 Range/Units 06:31 Sodium 141 (136-145) mEq/L Potassium 4.1 (3.5-5.1) mEq/L Chloride 112 H (98-107) mEq/L Carbon Dioxide 25 (23-29) mEq/L BUN 11 (6-20) mg/dL Creatinine 0.87 (0.60-1.20) mg/dL Glucose 93 (70-105) mg/dL Calcium 8.1 L (8.6-10.3) mg/dL Calcium panel 11/27/17 Range/Units 06:31 Calcium 8.1 L (8.6-10.3) mg/dL Pituitary panel 11/27/17 Range/Units 06:31 Sodium 141 (136-145) mEq/L Potassium 4.1 (3.5-5.1) mEq/L Chloride 112 H (98-107) mEq/L Carbon Dioxide 25 (23-29) mEq/L BUN 11 (6-20) mg/dL Creatinine 0.87 (0.60-1.20) mg/dL Glucose 93 (70-105) mg/dL Calcium 8.1 L (8.6-10.3) mg/dL Adrenal panel 11/27/17 Range/Units 06:31 Sodium 141 (136-145) mEq/L Potassium 4.1 (3.5-5.1) mEq/L Chloride 112 H (98-107) mEq/L Carbon Dioxide 25 (23-29) mEq/L BUN 11 (6-20) mg/dL Creatinine 0.87 (0.60-1.20) mg/dL Glucose 93 (70-105) mg/dL Calcium 8.1 L (8.6-10.3) mg/dL Consult Discharge Plan - Plan Referrals: Jayy Al MD [Primary Care Provider] -
[2017-11-27] MEDS: SUMAtriptan succinate 50 MG TABLET PO PRN (17:57)
[2017-11-27] MEDS: *HR* LORazepam 0.5 MG TABLET PO PRN (20:24)
[2017-11-27] MEDS: traMADol 50 MG TABLET PO PRN (22:40)
[2017-11-28] MEDS: *HR* LORazepam 0.5 MG TABLET PO PRN ×2 (03:23→21:01)
[2017-11-28] MEDS: tiZANidine 4 MG TABLET PO PRN ×2 (03:23→21:02)
--- NOTE | 2017-11-28 07:50 | General Surgery Progress Note ---
Date of Encounter: 11/28/17 Time of Encounter: 07:35 Subjective Narrative: SBFT completed last evening - oral contrast reached the ascending colon in 2 hours. No evidence SBO. Radiologic reading still pending. Impression/Plan Regular diet if no further symptoms, medically stable and tolerating diet - may discharge home. Surgical follow up as needed Objective Vital Signs - Last 8 Hours Temp Pulse Resp BP Pulse Ox 11/28/17 06:43 97.8 F 83 14 113/72 97 11/28/17 04:51 97.7 F 75 15 112/69 97 Intake and Output 11/27/17 11/27/17 11/28/17 15:59 23:59 07:59 Intake Total 107 / 107 0 / 0 0 / 0 Output Total 0 / 0 Balance 107 / 107 0 / 0 0 / 0 Intake: IV Fluids 107 / 107 KCl 20 mEq in 0.9% Sodium 107 / 107 Chloride 20 meq In 1,000 ml @ 125 mls/hr IVC .Q8H JAMES Rx#: [id number] Oral 0 / 0 0 / 0 Output: Urine 0 / 0 Other: Meal NPO LUNCH NPO Percent of Meal Consumed 0% Stool Consistency liquid # Voids 1 1 2 # Bowel Movements 1 0 Weight 91.8 kg Blood Glucose* 83 Patient Weight 11/28/17 23:59 Weight 91.8 kg - Labs 11/27/17 06:31 11/27/17 06:31 - VTE Documentation of Mechanical Device: Intermittent pneumatic compression device Consult Discharge Plan - Plan Referrals: Jayy Al MD [Primary Care Provider] -
[2017-11-28] MEDS: hydroCHLOROthiazide 25 MG TABLET PO SCH (09:23)
[2017-11-28] MEDS: traMADol 50 MG TABLET PO PRN (09:23)
[2017-11-28] MEDS: SUMAtriptan succinate 50 MG TABLET PO PRN (10:04)
--- NOTE | 2017-11-28 11:41 | Discharge Summary ---
- NOTES TO OUTPATIENT PROVIDER Notes to Outpatient Provider: Patient hospitalized with abdominal pain, nausea and vomiting. Initially suspected of having a small bowel obstruction. However she did have episodes of diarrhea in the ER. She was placed in hospital for observation and then surgery consulted. Patient underwent small bowel follow-through yesterday and has had bowel movements since then. No longer having any abdominal pain. Most likely she had constipation/ileus related to new medication that she recently started for migraine- Aimovig Which can cause constipation. Recommend holding this medication or placing her on laxatives while she receives this medication. She is now tolerating oral diet. No abdominal pain at this time. She will be discharged today and can follow- up with her PCP for further management. Orders not resulted at time of discharge: Pending orders 11/27/17 14:49 XR small bowel FT gastrografin [XR] Routine Date of Encounter: 11/28/17 Time of Encounter: 11:37 - Discharge Diagnosis (1) Small bowel obstruction Priority: Primary Status: Resolved (2) Migraine Priority: Secondary Status: Chronic Qualifiers: Migraine type: unspecified Status migrainosus presence: without status migrainosus Intractability: not intractable Qualified Code(s): G43.909 - Migraine, unspecified, not intractable, without status migrainosus (3) Depression with anxiety Priority: Secondary Status: Chronic Hospital course: Ms. Oleary is a 52 year old female Patient with history of hypertension, hyperlipidemia, asthma, migraine was hospitalized with abdominal pain, nausea and vomiting. Initially suspected of having a small bowel obstruction. However she did have episodes of diarrhea in the ER. She was placed in hospital for observation and then surgery consulted. Patient underwent small bowel follow-through yesterday and has had bowel movements since then. No longer having any abdominal pain. Most likely she had constipation/ileus related to new medication that she recently started for migraine- Aimovig Which can cause constipation. Recommend holding this medication or placing her on laxatives while she receives this medication. She is now tolerating oral diet. No abdominal pain at this time. She will be discharged today and can follow- up with her PCP for further management. Discharge discussed with: patient - Time Spent with Patient Total time spent providing and/or coordinating discharge services: Greater than 30 minutes Specific discharge activities: 32 min - Discharge Medications Home Medications: LORazepam [Ativan] 0.5 mg PO BID PRN 12/01/16 [History] Ondansetron HCl [Zofran] 4 mg PO TID PRN 12/01/16 [History] Tizanidine HCl 2 mg PO HS PRN 12/27/16 [History] hydroCHLOROthiazide [Hydrochlorothiazide] 25 mg PO DAILY 12/27/16 [History] Losartan Potassium [Cozaar] 50 mg PO DAILY PRN 11/26/17 [History] Allergies/Adverse Reactions: 3 Allergy/AdvReac Type Severity Reaction Status Date / Time albuterol Allergy Palpitation Verified 12/27/16 09:24 s Amoxicillin [From Augmentin] Allergy Anaphylaxis Verified 12/27/16 09:24 clavulanic acid Allergy Anaphylaxis Verified 12/27/16 09:24 [From Augmentin] metoclopramide [From Reglan] Allergy Confusion Verified 12/27/16 09:24 Date of admission: 11/26/17 10:55 Primary care physician: Jayy Al MD Consults: 11/26/17 10:45 Consult to Surgery [CONS] Routine Consulting Provider: Surgery Neil Surg - [facility] Reason for Consult: SBO Call Completed: Yes Discharging clinician: Florentin Mendoza Anticipated date of discharge: 11/28/17 - Constitutional Vitals: Temp Pulse Resp BP Pulse Ox 98.5 F 78 15 112/73 96 11/28/17 10:59 11/28/17 10:59 11/28/17 10:59 11/28/17 10:59 11/28/17 10:59 General appearance: Present: A&O X 3, no acute distress, answers questions appropriately - Respiratory Respiratory exam: Present: CTAB. Absent: accessory muscle use, rales, rhonchi, wheezes - Cardiovascular Cardiovascular exam: Present: RRR, +S1, +S2. Absent: diastolic murmur, gallop, rubs, systolic murmur - GI/Abdominal GI/Abdominal exam: Present: normal bowel sounds, soft, no peritoneal signs. Absent: distended, tenderness - Patient Status Disposition: Home, Self-Care Condition: Good Functional capacity at discharge: independent ambulation Overall status at discharge: patient is progressing back to baseline - Discharge Instructions Follow Up With: Jayy Al MD [Primary Care Provider] - 12/05/17 2:15 pm (In 1-2 weeks) - Diet and Activity Activity: increase activity as tolerated, other (Resume work tomorrow) Diet: advance to your usual diet - VTE Documentation of Mechanical Device: Intermittent pneumatic compression device
--- NOTE | 2017-11-28 14:46 | Electrocardiograph Report ---
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
[2017-11-28 21:02] VITALS: BP 143/85
== END 2017-11-28 22:12 | disposition home or self-care (01) | DRG 390 ==
LOC: EMEROO 08:57 → 3ANU 08:57 → OBSVTOIN 10:55 → SUATTDRO 10:55 → 3ANU 11:03
PROVIDERS: ADMIT Hospitalist; ATTEND Internal Medicine

== ENCOUNTER 2018-11-17 15:57 | Observation (INO) ==
[2018-11-17] MEDS ORDERED: *HR* FentaNYL (PF) 100 MCG/2 ML VIAL IVP ONE (17:02)
--- NOTE | 2018-11-17 17:03 | Emergency Department Note ---
Disposition Clinical Impression: NEHAL (acute kidney injury), Dehydration, Hypokalemia Disposition: Admitted As Inpatient Condition: Good Time of Disposition: 20:00 General Adult HPI - General Chief complaint: ED Chest Pain Stated complaint: Fever / Nausea / Chest Hurts Time Seen by Provider: 11/17/18 16:36 Nursing Notes Reviewed: Yes Vital Signs Reviewed: Yes - History of Present Illness HPI Narrative: 53-year-old female presents emergency department with concern for not feeling well and having some chest tightness. Patient reports having chills couple days ago. She has not been eating and drinking well. She does endorse some nausea. She denies any fevers, cough, sputum production. She denies any dysuria, urinary hesitancy, urgency. She does endorse some left flank pain. Patient also admits to rolling her right ankle the other day and having some right lower extremity swelling as well. She denies any fall. Pain Scale: 6 - Related Data Home Medications Medication Instructions Recorded Confirmed LORazepam [Ativan] 0.5 mg PO BID PRN 12/01/16 11/17/18 Tizanidine HCl 2 mg PO HS PRN 12/27/16 11/17/18 hydroCHLOROthiazide 25 mg PO DAILY 12/27/16 11/17/18 [Hydrochlorothiazide] Atenolol 100 mg PO DAILY 10/09/18 11/17/18 Buspirone HCl [Buspar] 10 mg PO DAILY 10/09/18 11/17/18 Erenumab-Aooe [Aimovig 70 mg SQ QMONTH 10/09/18 11/17/18 Autoinjector] Hyoscyamine SL [Levsin SL] 0.125 mg SL Q6H PRN 10/09/18 11/17/18 Loratadine [Claritin] 10 mg PO DAILY 10/09/18 11/17/18 Meclizine HCl [Verticalm] 25 mg PO DAILY PRN 10/09/18 11/17/18 Ondansetron HCl [Zofran] 4 mg PO DAILY 10/09/18 11/17/18 Rizatriptan Benzoate [Maxalt Senior Research Project Manager] 10 mg PO DAILY PRN 10/09/18 11/17/18 Valsartan [Diovan] 80 mg PO DAILY 10/09/18 11/17/18 Allergies Allergy/AdvReac Type Severity Reaction Status Date / Time albuterol Allergy Palpitation Verified 12/27/16 09:24 s clavulanic acid Allergy Anaphylaxis Verified 12/27/16 09:24 [From Augmentin] metoclopramide [From Reglan] Allergy Confusion Verified 12/27/16 09:24 prochlorperazine AdvReac See Verified 10/12/18 13:47 [From Compazine] Comments All systems ED: reviewed and negative except as stated. Review of Systems: As Per HPI Constitutional: Reports: chills. Denies: fever Cardiovascular: Denies: chest pain Respiratory: Reports: cough. Denies: dyspnea Gastrointestinal: Reports: abdominal pain, nausea. Denies: vomiting Genitourinary: Denies: urgency, dysuria, frequency Musculoskeletal: Reports: back pain Past Medical History - Past Medical History Attestation: Yes The following information was validated with the patient. Medical history: Reports: GERD, hyperlipidemia, hypertension, kidney stones, migraine Surgical history: Reports: appendectomy, breast surgery, , cholecystectomy, hysterectomy, orthopedic, other, other Psychiatric history: Reports: anxiety, depression, panic disorder - Social History Smoking Status: Never smoker Smokeless Tobacco Status: No Alcohol use: Reports: none, occasionally Drug use: Reports: none Physical Exam - General Limitations: no limitations General appearance: alert, in no apparent distress - Head Head exam: normocephalic - Eye Eye exam: Present: EOMI. Absent: scleral icterus - ENT ENT exam: mucous membranes moist - Neck Neck exam: Present: trachea midline - Chest Chest inspection: Present: symmetric chest wall rise - Respiratory Respiratory exam: Present: normal lung sounds bilaterally. Absent: respiratory distress, accessory muscle use, prolonged expiratory phase - Cardiovascular Cardiovascular exam: Present: regular rate, normal rhythm, normal heart sounds - Abdominal Exam Abdominal exam: Present: soft, Non-Tender. Absent: distention, guarding, rebound, rigidity - Extremities Exam Extremities exam: Present: normal capillary refill - Back Exam Back exam: Present: CVA tenderness (L). Absent: CVA tenderness (R) - Neurological Exam Neurological exam: Present: alert, oriented X3, CN II-XII intact, other (GCS 15) - Psychiatric Psychiatric exam: Present: normal affect, normal mood - Skin Skin exam: Present: warm, dry, intact, normal color. Absent: rash Course Vital Signs Temperature 97.7 F 07/28/19 16:13 Pulse Rate 74 11/17/18 16:13 Respiratory Rate 18 11/17/18 16:13 Blood Pressure 76/51 11/17/18 16:13 O2 Sat by Pulse Oximetry 95 11/17/18 16:13 Temperature 98.1 F 11/17/18 22:59 Pulse Rate 76 11/17/18 22:59 Respiratory Rate 16 11/17/18 22:59 Blood Pressure 106/67 11/17/18 22:59 O2 Sat by Pulse Oximetry 98 11/17/18 22:59 Oxygen Delivery Oxygen Delivery Room Air Medical Decision Making - MDM Narrative Medical decision making narrative: 53-year-old female was his emergency department with concern for not feeling well, hypotension. Patient initially hypotensive on initial exam. We did administer fluids and her blood pressure responded significantly to it. Patient also has acute kidney injury. Evaluated for traumatic injury of the ankle, knee and these were negative. Did order a d-dimer which was elevated. Obtained a CT angiogram of the chest which was normal. Patient to be admitted as she has an acute kidney injury in the setting of initially being hypotensive. Patient currently stable at time of admission. Chest X-Ray 11/17/18 16:23 IMPRESSION: Normal appearing chest. No acute abnormality. No significant change from the prior study. D/ / Vijay Martinez MD / Vijay Martinez MD Interpreting Provider: Vijay Martinez MD Ankle X-Ray 11/17/18 17:01 IMPRESSION: No acute osseous abnormality of the right knee or right ankle. D/ /17/2018 17:41:08 Tre Dunbar MD / timo Interpreting Provider: Tre Dunbar MD Knee X-Ray 11/17/18 17:01 IMPRESSION: No acute osseous abnormality of the right knee or right ankle. D/ /17/2018 17:41:08 Tre Dunbar MD / timo Interpreting Provider: Tre Dunbar MD Chest CTA 11/17/18 17:28 IMPRESSION: No evidence of pulmonary embolism or acute pulmonary abnormality. D/ / Rajesh Naranjo MD / Rajesh Naranjo MD Interpreting Provider: Rajesh Naranjo MD Abdomen/Pelvis CT 11/17/18 17:31 IMPRESSION: No acute abnormality. D/ / Rajesh Naranjo MD / Rajesh Naranjo MD Interpreting Provider: Rajesh Naranjo MD - Lab Data Result diagrams: 11/17/18 16:55 11/17/18 16:55 Lab Results 11/17/18 11/17/18 11/17/18 Range/Units 16:55 16:55 16:55 WBC 4.2 L (4.3-11.1) K/mcL RBC 5.03 H (3.82-4.97) M/mcL Hgb 14.5 (11.5-15.4) g/dL Hct 43.2 (35.3-44.9) % MCV 85.9 (83.0-100.0) fL MCH 28.8 (28.0-33.3) pg MCHC 33.6 (31.6-35.5) g/dL RDW 12.5 (11.5-14.5) % Plt Count 193 (140-400) K/mcL MPV 9.9 (9.4-12.4) fL Immature Gran % 0.5 (0-4) % Seg Neutrophils % 44.9 % Lymphocytes % 43.5 % Monocytes % 8.7 % Eosinophils % 1.0 % Basophils % 1.4 % Neutrophils # 1.9 (1.6-8.9) K/mcL Lymphocytes # 1.8 (0.6-4.6) K/mcL Monocytes # 0.4 (0.0-1.3) K/mcL Eosinophils # 0.0 (0.0-0.6) K/mcL Basophils # 0.1 (0.0-0.2) K/mcL Platelet Estimate Slight Decrease L (Normal) PT 11.8 (9.4-12.1) Seconds INR 1.0 D-Dimer 1987 H (0-500) ng/mLFEU Sodium 139 (136-145) mEq/L Potassium 3.2 L (3.5-5.1) mEq/L Chloride 103 (98-107) mEq/L Carbon Dioxide 24 (23-29) mEq/L BUN 16 (6-20) mg/dL Creatinine 1.34 H (0.60-1.20) mg/dL Est GFR ( Amer) 50 L (> 60) Est GFR (Non-Af Amer) 42 L (> 60) BUN/Creatinine Ratio 12 (6-26) Glucose 140 H (70-105) mg/dL Calculated Osmolality 291 (280-300) Lactic Acid (0.5-2.2) mmol/L Calcium 9.3 (8.6-10.3) mg/dL Creatine Kinase 52 (30-223) Units/L Troponin I < 0.03 (< 0.04) ng/mL Urine Color (Yellow) Urine Clarity (Clear) Urine pH (5.0-8.0) pH Units Ur Specific [place] (1.010-1.025) Urine Protein (Neg-Trace) mg/dL Urine Glucose (UA) (Normal) mg/dL Urine Ketones (Negative) mg/dL Urine Blood (Negative) Urine Nitrite (Negative) Urine Bilirubin (Negative) Urine Urobilinogen (Normal) mg/dL Ur Leukocyte Esterase (Negative) Ur Culture Indicated? (NO) 11/17/18 11/17/18 Range/Units 18:40 19:37 WBC (4.3-11.1) K/mcL RBC (3.82-4.97) M/mcL Hgb (11.5-15.4) g/dL Hct (35.3-44.9) % MCV (83.0-100.0) fL MCH (28.0-33.3) pg MCHC (31.6-35.5) g/dL RDW (11.5-14.5) % Plt Count (140-400) K/mcL MPV (9.4-12.4) fL Immature Gran % (0-4) % Seg Neutrophils % % Lymphocytes % % Monocytes % % Eosinophils % % Basophils % % Neutrophils # (1.6-8.9) K/mcL Lymphocytes # (0.6-4.6) K/mcL Monocytes # (0.0-1.3) K/mcL Eosinophils # (0.0-0.6) K/mcL Basophils # (0.0-0.2) K/mcL Platelet Estimate (Normal) PT (9.4-12.1) Seconds INR D-Dimer (0-500) ng/mLFEU Sodium (136-145) mEq/L Potassium (3.5-5.1) mEq/L Chloride (98-107) mEq/L Carbon Dioxide (23-29) mEq/L BUN (6-20) mg/dL Creatinine (0.60-1.20) mg/dL Est GFR ( Amer) (> 60) Est GFR (Non-Af Amer) (> 60) BUN/Creatinine Ratio (6-26) Glucose (70-105) mg/dL Calculated Osmolality (280-300) Lactic Acid 1.5 (0.5-2.2) mmol/L Calcium (8.6-10.3) mg/dL Creatine Kinase (30-223) Units/L Troponin I (< 0.04) ng/mL Urine Color Yellow (Yellow) Urine Clarity Clear (Clear) Urine pH 6.5 (5.0-8.0) pH Units Ur Specific [place] > 1.030 H (1.010-1.025) Urine Protein Negative (Neg-Trace) mg/dL Urine Glucose (UA) Normal (Normal) mg/dL Urine Ketones Negative (Negative) mg/dL Urine Blood Negative (Negative) Urine Nitrite Negative (Negative) Urine Bilirubin Negative (Negative) Urine Urobilinogen Normal (Normal) mg/dL Ur Leukocyte Esterase Negative (Negative) Ur Culture Indicated? NO (NO) - EKG Data EKG #1 EKG attestation: Yes I reviewed and interpreted this EKG. EKG results narrative: 17:10 Heart rate 70 bpm, DC interval and 156 months os, QRS duration 99 ms, QT 392 ms, but there is deviation. Sinus rhythm with mild ST changes in the septal and anterior leads.
[2018-11-17 17:12] LABS: Basophils # 0.1 K/mcL (0.0-0.2); Basophils % 1.4 %; Hematocrit 43.2 % (35.3-44.9); Hemoglobin 14.5 g/dL (11.5-15.4); Immature Granulocytes % 0.5 % (0-4); Lymphocytes # 1.8 K/mcL (0.6-4.6); Lymphocytes % 43.5 %; Mean Corpuscular HGB Conc 33.6 g/dL (31.6-35.5); Mean Corpuscular Hemoglobin 28.8 pg (28.0-33.3); Mean Corpuscular Volume 85.9 fL (83.0-100.0); Mean Platelet Volume 9.9 fL (9.4-12.4); Monocytes # 0.4 K/mcL (0.0-1.3); Monocytes % 8.7 %; Neutrophils # 1.9 K/mcL (1.6-8.9); Platelet Count 193 K/mcL (140-400); Red Blood Count 5.03 M/mcL (3.82-4.97); Red Cell Distribution Width 12.5 % (11.5-14.5); Segmented Neutrophils % 44.9 %; White Blood Count 4.2 K/mcL (4.3-11.1)
[2018-11-17 17:13] LABS: Prothrombin Time 11.8 Seconds (9.4-12.1)
[2018-11-17] MEDS ORDERED: 0.9 % Sodium Chloride 1,000 ML IVC ONE ×3 (17:23→18:35)
[2018-11-17] MEDS ORDERED: Isovue-370 500 ML BOTTLE IVP ONE ×2 (17:28→17:31)
[2018-11-17 17:32] LABS: Platelet Estimate Slight Decrease (Normal)
[2018-11-17 17:33] LABS: Troponin I < 0.03 ng/mL (< 0.04)
[2018-11-17 17:34] LABS: BUN/Creatinine Ratio 12 (6-26); Blood Urea Nitrogen 16 mg/dL (6-20); Calcium 9.3 mg/dL (8.6-10.3); Carbon Dioxide 24 mEq/L (23-29); Chloride 103 mEq/L (98-107); Glucose 140 mg/dL (70-105); Osmolality,Calculated 291 (280-300); Potassium 3.2 mEq/L (3.5-5.1); Sodium 139 mEq/L (136-145); eGFR For African Americans 50 (> 60); eGFR For Non-African Americans 42 (> 60)
[2018-11-17] MEDS ORDERED: cefTRIAXone 1,000 MG in Water for inj. (sterile) 10 ML IVP ONE (18:56)
[2018-11-17 19:47] LABS: Bilirubin,Urine Negative (Negative); Blood,Urine Negative (Negative); Clarity,Urine Clear (Clear); Color,Urine Yellow (Yellow); Glucose,Urine (UA) Normal (Normal); Ketones,Urine Negative (Negative); Leukocyte Esterase,Urine Negative (Negative); Nitrite,Urine Negative (Negative); PH,Urine 6.5 pH Units (5.0-8.0); Protein,Urine Negative (Neg-Trace); Specific Gravity,Urine > 1.030 (1.010-1.025); Urobilinogen,Urine Normal (Normal)
--- NOTE | 2018-11-17 20:18 | Emergency Department Note ---
Disposition Clinical Impression: NEHAL (acute kidney injury), Dehydration, Hypokalemia Disposition: Admitted As Inpatient Condition: Good Forms: ED Satisfaction Letter Time of Disposition: 20:19 General Adult HPI - General Chief complaint: ED Chest Pain Stated complaint: Fever / Nausea / Chest Hurts Time Seen by Provider: 11/17/18 16:36 Source: patient, family Limitations: no limitations - History of Present Illness Pain Scale: 6 - Related Data Home Medications Medication Instructions Recorded Confirmed LORazepam [Ativan] 0.5 mg PO BID PRN 12/01/16 11/17/18 Tizanidine HCl 2 mg PO HS PRN 12/27/16 11/17/18 hydroCHLOROthiazide 25 mg PO DAILY 12/27/16 11/17/18 [Hydrochlorothiazide] Atenolol 100 mg PO DAILY 10/09/18 11/17/18 Buspirone HCl [Buspar] 10 mg PO DAILY 10/09/18 11/17/18 Erenumab-Aooe [Aimovig 70 mg SQ QMONTH 10/09/18 11/17/18 Autoinjector] Hyoscyamine SL [Levsin SL] 0.125 mg SL Q6H PRN 10/09/18 11/17/18 Loratadine [Claritin] 10 mg PO DAILY 10/09/18 11/17/18 Meclizine HCl [Verticalm] 25 mg PO DAILY PRN 10/09/18 11/17/18 Ondansetron HCl [Zofran] 4 mg PO DAILY 10/09/18 11/17/18 Rizatriptan Benzoate [Maxalt Water And Fire Technician] 10 mg PO DAILY PRN 10/09/18 11/17/18 Valsartan [Diovan] 80 mg PO DAILY 10/09/18 11/17/18 Allergies Allergy/AdvReac Type Severity Reaction Status Date / Time albuterol Allergy Palpitation Verified 12/27/16 09:24 s clavulanic acid Allergy Anaphylaxis Verified 12/27/16 09:24 [From Augmentin] metoclopramide [From Reglan] Allergy Confusion Verified 12/27/16 09:24 prochlorperazine AdvReac See Verified 10/12/18 13:47 [From Compazine] Comments Past Medical History - Past Medical History Medical history: Reports: GERD, hyperlipidemia, hypertension, kidney stones, migraine Surgical history: Reports: appendectomy, breast surgery, , cholecystectomy, hysterectomy, orthopedic, other, other Psychiatric history: Reports: anxiety, depression, panic disorder - Social History Smoking Status: Never smoker Smokeless Tobacco Status: No Alcohol use: Reports: none, occasionally Drug use: Reports: none Physical Exam - General Limitations: no limitations General appearance: alert, in no apparent distress Course Vital Signs Temperature 97.7 F 11/17/18 16:13 Pulse Rate 74 11/17/18 16:13 Respiratory Rate 18 11/17/18 16:13 Blood Pressure 76/51 11/17/18 16:13 O2 Sat by Pulse Oximetry 95 11/17/18 16:13 Temperature 97.7 F 11/17/18 17:05 Pulse Rate 72 11/17/18 17:41 Respiratory Rate 16 11/17/18 17:41 Blood Pressure 82/47 11/17/18 17:41 O2 Sat by Pulse Oximetry 98 11/17/18 17:41 Oxygen Delivery Oxygen Delivery Room Air Medical Decision Making - Lab Data Result diagrams: 11/17/18 16:55 11/17/18 16:55 Lab Results 11/17/18 11/17/18 11/17/18 Range/Units 16:55 16:55 16:55 WBC 4.2 L (4.3-11.1) K/mcL RBC 5.03 H (3.82-4.97) M/mcL Hgb 14.5 (11.5-15.4) g/dL Hct 43.2 (35.3-44.9) % MCV 85.9 (83.0-100.0) fL MCH 28.8 (28.0-33.3) pg MCHC 33.6 (31.6-35.5) g/dL RDW 12.5 (11.5-14.5) % Plt Count 193 (140-400) K/mcL MPV 9.9 (9.4-12.4) fL Immature Gran % 0.5 (0-4) % Seg Neutrophils % 44.9 % Lymphocytes % 43.5 % Monocytes % 8.7 % Eosinophils % 1.0 % Basophils % 1.4 % Neutrophils # 1.9 (1.6-8.9) K/mcL Lymphocytes # 1.8 (0.6-4.6) K/mcL Monocytes # 0.4 (0.0-1.3) K/mcL Eosinophils # 0.0 (0.0-0.6) K/mcL Basophils # 0.1 (0.0-0.2) K/mcL Platelet Estimate Slight Decrease L (Normal) PT 11.8 (9.4-12.1) Seconds INR 1.0 D-Dimer 1987 H (0-500) ng/mLFEU Sodium 139 (136-145) mEq/L Potassium 3.2 L (3.5-5.1) mEq/L Chloride 103 (98-107) mEq/L Carbon Dioxide 24 (23-29) mEq/L BUN 16 (6-20) mg/dL Creatinine 1.34 H (0.60-1.20) mg/dL Est GFR ( Amer) 50 L (> 60) Est GFR (Non-Af Amer) 42 L (> 60) BUN/Creatinine Ratio 12 (6-26) Glucose 140 H (70-105) mg/dL Calculated Osmolality 291 (280-300) Lactic Acid (0.5-2.2) mmol/L Calcium 9.3 (8.6-10.3) mg/dL Troponin I < 0.03 (< 0.04) ng/mL Urine Color (Yellow) Urine Clarity (Clear) Urine pH (5.0-8.0) pH Units Ur Specific [place] (1.010-1.025) Urine Protein (Neg-Trace) mg/dL Urine Glucose (UA) (Normal) mg/dL Urine Ketones (Negative) mg/dL Urine Blood (Negative) Urine Nitrite (Negative) Urine Bilirubin (Negative) Urine Urobilinogen (Normal) mg/dL Ur Leukocyte Esterase (Negative) Ur Culture Indicated? (NO) 11/17/18 11/17/18 Range/Units 18:40 19:37 WBC (4.3-11.1) K/mcL RBC (3.82-4.97) M/mcL Hgb (11.5-15.4) g/dL Hct (35.3-44.9) % MCV (83.0-100.0) fL MCH (28.0-33.3) pg MCHC (31.6-35.5) g/dL RDW (11.5-14.5) % Plt Count (140-400) K/mcL MPV (9.4-12.4) fL Immature Gran % (0-4) % Seg Neutrophils % % Lymphocytes % % Monocytes % % Eosinophils % % Basophils % % Neutrophils # (1.6-8.9) K/mcL Lymphocytes # (0.6-4.6) K/mcL Monocytes # (0.0-1.3) K/mcL Eosinophils # (0.0-0.6) K/mcL Basophils # (0.0-0.2) K/mcL Platelet Estimate (Normal) PT (9.4-12.1) Seconds INR D-Dimer (0-500) ng/mLFEU Sodium (136-145) mEq/L Potassium (3.5-5.1) mEq/L Chloride (98-107) mEq/L Carbon Dioxide (23-29) mEq/L BUN (6-20) mg/dL Creatinine (0.60-1.20) mg/dL Est GFR ( Amer) (> 60) Est GFR (Non-Af Amer) (> 60) BUN/Creatinine Ratio (6-26) Glucose (70-105) mg/dL Calculated Osmolality (280-300) Lactic Acid 1.5 (0.5-2.2) mmol/L Calcium (8.6-10.3) mg/dL Troponin I (< 0.04) ng/mL Urine Color Yellow (Yellow) Urine Clarity Clear (Clear) Urine pH 6.5 (5.0-8.0) pH Units Ur Specific [place] > 1.030 H (1.010-1.025) Urine Protein Negative (Neg-Trace) mg/dL Urine Glucose (UA) Normal (Normal) mg/dL Urine Ketones Negative (Negative) mg/dL Urine Blood Negative (Negative) Urine Nitrite Negative (Negative) Urine Bilirubin Negative (Negative) Urine Urobilinogen Normal (Normal) mg/dL Ur Leukocyte Esterase Negative (Negative) Ur Culture Indicated? NO (NO) Attestation Statement - Attestation Attestation: I reviewed the residents documentation and agree with the residents assessment and plan of care. I have personally had face to face time with the patient. (Brief History, Brief Exam, and MDM) I personally supervised and was present for the stevenson/critical portions of the following procedures completed by the resident: EKG 53 year old female presents to the eD with complaints of hypotension and weakness and fatigue. She has dumping syndrome and HCTZ and appers to have mild NEHAL. She arrived hypotensive but otherwise has been fluid repsonsive and is now 109/71 from 70/50s. WE will admit to medicine.
[2018-11-17 20:23] LABS: Creatine Kinase 52 Units/L (30-223)
[2018-11-17] MEDS ORDERED: Naloxone 0.4 MG/ML INJ IVP PRN (22:41)
[2018-11-17] MEDS ORDERED: Hyoscyamine SL 0.125 MG TAB.SUBL SL PRN (22:56)
[2018-11-17] MEDS ORDERED: Nitroglycerin 0.4 MG TAB.SUBL SL PRN (22:56)
[2018-11-17] MEDS ORDERED: *HR* LORazepam 0.5 MG TABLET PO PRN (22:56)
[2018-11-17] MEDS ORDERED: Morphine Sulfate 2 MG/ML SYRINGE IVP PRN (22:56)
[2018-11-18] MEDS: 0.9 % Sodium Chloride 1,000 ML IVC SCH ×2 (00:02→14:19)
[2018-11-18] MEDS: *HR* Heparin 5,000 UNIT/ML VIAL SQ SCH ×3 (00:03→17:02)
[2018-11-18 01:47] LABS: Basophils % 1.2 %; Eosinophils # 0.1 K/mcL (0.0-0.6); Eosinophils % 2.4 %; Hematocrit 40.7 % (35.3-44.9); Hemoglobin 13.4 g/dL (11.5-15.4); Immature Granulocytes % 0.3 % (0-4); Lymphocytes # 1.6 K/mcL (0.6-4.6); Lymphocytes % 45.9 %; Mean Corpuscular HGB Conc 32.9 g/dL (31.6-35.5); Mean Corpuscular Hemoglobin 28.8 pg (28.0-33.3); Mean Corpuscular Volume 87.3 fL (83.0-100.0); Monocytes # 0.3 K/mcL (0.0-1.3); Monocytes % 9.4 %; Neutrophils # 1.4 K/mcL (1.6-8.9); Platelet Count 172 K/mcL (140-400); Red Blood Count 4.66 M/mcL (3.82-4.97); Red Cell Distribution Width 12.8 % (11.5-14.5); Segmented Neutrophils % 40.8 %; White Blood Count 3.4 K/mcL (4.3-11.1)
[2018-11-18 01:56] LABS: Prothrombin Time 10.8 Seconds (9.4-12.1)
--- NOTE | 2018-11-18 02:05 | Internal Med History&Physical ---
Date of Encounter: 11/17/18 Time of Encounter: 22:00 Internal Medicine - H&P: HPI Chief complaint: CP Admitted From: Emergency Dept Plans for Post Hospital Care: Home History of present illness: Ms. Oleary is a 53 year old female who presented to ER with complaints of chest pain, weakness, lightheadedness, and dizziness. She was also dehydrated. She was hypotensive in the ER and responded to IV fluid hydration. Workup was negative, including CTA of the chest and abdomen. She was then admitted to hospitalist service. Upon my assessment of the patient, she feels much better after IV fluid administration. Blood pressure is stable now. She has no further chest pain. She does have a history of neurocardiogenic syncope. However, she did not have any syncope or near syncopal event today. Her presenting symptom and complaint was chest pain. She was hypotensive at that point. With fluid administration, she feels much better and her chest pain has resolved. Her EKG is a little concerning, however. It does suggest some anteroseptal ischemia. Patient reportedly had stress test about a 1 1/2 years ago. Given her presenting symptoms, EKG findings, and hypotension, I informed patient I'm going to consult cardiology as I feel she may need invasive workup. Past Med Surg Social Fam HX - Past Medical History Attestation: Yes The following information was validated with the patient. Source: patient, old records reviewed Medical history: GERD, hyperlipidemia, hypertension, kidney stones, migraine Psychiatric history: anxiety, panic disorder - Past Surgical History Surgical History: appendectomy, breast surgery, , cholecystectomy, hysterectomy, orthopedic, other, other Additional surgical history: hammer toes - Social History Smoking Status: Never smoker Smokeless Tobacco Status: No Alcohol use: rarely Drug use: none Occupational status: employed Current living situation: Home, With Family Activity Level: Independent ambulation Recent Out of Country Travel Within the Last 8 Weeks: No - Family History Mother Adopted: No Living Status: Still Living Hx Family Cardiac Disorders: Yes (Hypertension, AAA, 2 Stents.) Hx Family Respiratory Disorders: No Hx Family Cancer: Yes (Skin) Hx Family GI Disorders: Yes (Stomach Ulcers,) Father Living Status: Still Living Hx Family Cardiac Disorders: No Paternal Grandfather Living Status: Hx Family Cardiac Disorders: Yes Internal Medicine - H&P: Meds LORazepam [Ativan] 0.5 mg PO BID PRN 12/01/16 [History] Tizanidine HCl 2 mg PO HS PRN 12/27/16 [History] hydroCHLOROthiazide [Hydrochlorothiazide] 25 mg PO DAILY 12/27/16 [History] Atenolol 100 mg PO DAILY 10/09/18 [History] Buspirone HCl [Buspar] 10 mg PO DAILY 10/09/18 [History] Erenumab-Aooe [Aimovig Autoinjector] 70 mg SQ QMONTH 10/09/18 [History] Hyoscyamine SL [Levsin SL] 0.125 mg SL Q6H PRN 10/09/18 [History] Loratadine [Claritin] 10 mg PO DAILY 10/09/18 [History] Meclizine HCl [Verticalm] 25 mg PO DAILY PRN 10/09/18 [History] Ondansetron HCl [Zofran] 4 mg PO DAILY 10/09/18 [History] Rizatriptan Benzoate [Maxalt Chief Design Drafter] 10 mg PO DAILY PRN 10/09/18 [History] Valsartan [Diovan] 80 mg PO DAILY 10/09/18 [History] Allergy/AdvReac Type Severity Reaction Status Date / Time albuterol Allergy Palpitation Verified 12/27/16 09:24 s clavulanic acid Allergy Anaphylaxis Verified 12/27/16 09:24 [From Augmentin] metoclopramide [From Reglan] Allergy Confusion Verified 12/27/16 09:24 prochlorperazine AdvReac See Verified 10/12/18 13:47 [From Compazine] Comments - Constitutional Constitutional: fatigue, weakness, no chills, no fever(s), no night sweats - EENT Eyes: no blurry vision, no change in vision Ears: no ear pain, no tinnitus Nose, mouth and throat: no nasal congestion, no sinus pressure, no sore throat - Cardiovascular Cardiovascular ROS IM: chest pain, diaphoresis, dyspnea on exertion, lightheadedness, no dyspnea, no orthopnea, no paroxysmal nocturnal dyspnea, no syncope - Respiratory Respiratory: no cough, no chest congestion, no excessive phlegm production - Gastrointestinal Gastrointestinal: no abdominal pain, no diarrhea, no hematemesis, no hematochezia, no melena, no nausea, no vomiting - Genitourinary Genitourinary: no dysuria, no flank pain, no hematuria - Musculoskeletal Musculoskeletal ROS IM: no arthralgias, no back pain - Integumentary Integumentary IM: no rash, no jaundice - Neurological Neurological ROS: no convulsions, no disequilibrium, no dizziness, no focal weakness, no frequent falls, no headache(s) - Psychiatric Psychiatric: no anxiety, no depression - Endocrine Endocrine IM: no polydipsia, no polyphagia, no polyuria - Allergic/Immunologic Allergic/Immunologic: no GI upset with certain foods - Constitutional Vitals: Temp Pulse Resp BP Pulse Ox 98.1 F 76 16 106/67 98 11/17/18 22:59 11/17/18 22:59 11/17/18 22:59 11/17/18 22:59 11/17/18 22:59 General appearance: Present: cooperative, A&O X 3, pleasant, no acute distress, answers questions appropriately Exam: chest pain free currently - Head Head exam: Present: atraumatic, normal inspection - Eye Eye exam: Present: EOMI, PERRL. Absent: scleral icterus Pupils: Present: normal accommodation - ENT ENT exam: Present: mucous membranes dry, normal exam, normal oropharynx - Neck Neck exam general surgery: Present: full ROM, supple, trachea midline. Absent: tenderness, nuchal rigidity, thyromegaly - Expanded Neck Exam Neck exam: Absent: carotid bruit - Respiratory Respiratory exam: Present: CTAB. Absent: chest wall tenderness, rales, rhonchi, wheezes - Cardiovascular Cardiovascular exam: Present: RRR, +S1, +S2. Absent: diastolic murmur, systolic murmur - GI/Abdominal GI/Abdominal exam: Present: normal bowel sounds, soft. Absent: guarding, hepatomegaly, mass, rebound, splenomegaly, tenderness - Extremities Exam Extremities exam: Present: full ROM, normal capillary refill, warm, radial pulses palpable and symmetrical. Absent: calf tenderness, pedal edema, tenderness - Back Exam Back exam: Present: normal inspection. Absent: CVA tenderness (L), CVA tenderness (R) - Neurological Exam Neurological exam: Present: alert, CN II-XII intact, oriented X3, no focal deficits, strengths equal and symetr throughout. Absent: motor sensory deficit - Psychiatric Psychiatric exam: Present: normal affect, normal mood - Skin Skin exam: Present: dry, intact, warm Internal Med - H&P Results - Labs CBC & Chem 7: 11/17/18 16:55 11/17/18 16:55 Labs: Short CBC 11/17/18 Range/Units 16:55 WBC 4.2 L (4.3-11.1) K/mcL Hgb 14.5 (11.5-15.4) g/dL Hct 43.2 (35.3-44.9) % Plt Count 193 (140-400) K/mcL Neutrophils # 1.9 (1.6-8.9) K/mcL BMP 11/17/18 16:55 Sodium 139 Potassium 3.2 L Chloride 103 Carbon Dioxide 24 BUN 16 Creatinine 1.34 H Glucose 140 H Calcium 9.3 Cardiac Enzymes 11/17/18 Range/Units 16:55 Troponin I < 0.03 (< 0.04) ng/mL Urine 11/17/18 Range/Units 19:37 Urine Color Yellow (Yellow) Urine Clarity Clear (Clear) Urine pH 6.5 (5.0-8.0) pH Units Ur Specific [place] > 1.030 H (1.010-1.025) Urine Protein Negative (Neg-Trace) mg/dL Urine Glucose (UA) Normal (Normal) mg/dL - EKG Data -: EKG Interpreted by Myself - EKG Data Prior EKG available for review: no EKG comments: 11/18/18 02:11 ischemic changes in septal and anterior leads - Impressions ITS Impressions Chest X-Ray 11/17/18 16:23 IMPRESSION: Normal appearing chest. No acute abnormality. No significant change from the prior study. D/ / Vijay Martinez MD / Vijay Martinez MD Interpreting Provider: Vijay Martinez MD Ankle X-Ray 11/17/18 17:01 IMPRESSION: No acute osseous abnormality of the right knee or right ankle. D/ / 11/17/2018 17:41:08 Tre Dunbar MD / timo Interpreting Provider: Tre Dunbar MD Knee X-Ray 11/17/18 17:01 IMPRESSION: No acute osseous abnormality of the right knee or right ankle. D/ / 11/17/2018 17:41:08 Tre Dunbar MD / bcarter Interpreting Provider: Tre Dunbar MD Chest CTA 11/17/18 17:28 IMPRESSION: No evidence of pulmonary embolism or acute pulmonary abnormality. D/ / Rajesh Naranjo MD / Rajesh Naranjo MD Interpreting Provider: Rajesh Naranjo MD Abdomen/Pelvis CT 11/17/18 17:31 IMPRESSION: No acute abnormality. D/ / Rajesh Naranjo MD / Rajesh Naranjo MD Interpreting Provider: Rajesh Naranjo MD - Diagnostic Studies Chest x-ray Status: image reviewed by me (negative) - Assessment and Plan (1) Chest pain Current Visit: Yes Status: Acute Assessment and plan: 1. Will cycle serial troponins, EKG's, and order ECHO. 2. Consult Cardiology. 3. Monitor on telemetry. Qualifiers: Chest pain type: precordial pain Qualified Code(s): R07.2 - Precordial pain (2) NEHAL (acute kidney injury) Current Visit: Yes Status: Acute Assessment and plan: 1. Hold BP meds and diuretics. 2. IVF hydration 3. Monitor renal function. 4. Consult nephrology if does not improve. (3) Dehydration Current Visit: Yes Status: Acute Assessment and plan: 1. As above. 2. Oral and IVF hydration. 3. Hold diuretics. (4) DVT prophylaxis Current Visit: Yes Status: Acute Assessment and plan: 1. Heparin SQ.
[2018-11-18 02:07] LABS: Alanine Aminotransferase 30 Units/L (7-52); Albumin 3.7 g/dL (3.5-5.7); Albumin/Globulin Ratio 1.4 (1.1-2.2); Alkaline Phosphatase 77 Units/L (34-104); Aspartate Amino Transferase 21 Units/L (13-39); BUN/Creatinine Ratio 11 (6-26); Bilirubin,Total 0.3 mg/dL (0.3-1.0); Blood Urea Nitrogen 12 mg/dL (6-20); Calcium 8.3 mg/dL (8.6-10.3); Carbon Dioxide 26 mEq/L (23-29); Chloride 106 mEq/L (98-107); Cholesterol 181 mg/dL (< 200); Globulin 2.6 g/dL (2.4-3.5); Glucose 104 mg/dL (70-105); HDL Cholesterol 30 mg/dL (40-59); LDL Cholesterol,Calculated 115 mg/dL (0-99); Magnesium 1.9 mg/dL (1.6-2.6); Osmolality,Calculated 290 (280-300); Potassium 3.6 mEq/L (3.5-5.1); Sodium 140 mEq/L (136-145); Total Protein 6.3 g/dL (6.4-8.9); Triglycerides 182 mg/dL (< 150); eGFR For African Americans > 60 (> 60); eGFR For Non-African Americans 55 (> 60)
[2018-11-18 02:40] LABS: Platelet Estimate Normal (Normal); Reactive Lymphocytes Present (Not Present)
[2018-11-18] MEDS: Ondansetron 4 MG/2 ML VIAL IVP PRN ×2 (05:40→14:38)
--- NOTE | 2018-11-18 08:39 | Internal Med Progress Note ---
<Martina Lee - Last Filed: 11/18/18 14:08> Hospitalist Progress Note - Encounter Date of Encounter: 11/18/18 - Exam Vitals: Temp Pulse Resp BP Pulse Ox 100.4 F H 82 16 107/67 95 11/18/18 07:30 11/18/18 07:30 11/18/18 07:30 11/18/18 07:30 11/18/18 08:20 - Assessment and Plan (1) NEHAL (acute kidney injury) Current Visit: Yes Status: Resolved (2) Dehydration Current Visit: Yes Status: Resolved (3) Chest pain Current Visit: Yes Status: Acute (4) DVT prophylaxis Current Visit: Yes Status: Acute - Time Spent with Patient Total time spent is greater than 50% in coordination of care (as documented) at patient's floor/unit and/or counseling patient: Internal Medicine: Result - Labs CBC & Chem 7: 11/18/18 00:34 11/18/18 00:34 Labs: Short CBC 11/17/18 11/18/18 Range/Units 16:55 00:34 WBC 4.2 L 3.4 L (4.3-11.1) K/mcL Hgb 14.5 13.4 (11.5-15.4) g/dL Hct 43.2 40.7 (35.3-44.9) % Plt Count 193 172 (140-400) K/mcL Neutrophils # 1.9 1.4 L (1.6-8.9) K/mcL BMP 11/17/18 11/18/18 16:55 00:34 Sodium 139 140 Potassium 3.2 L 3.6 Chloride 103 106 Carbon Dioxide 24 26 BUN 16 12 Creatinine 1.34 H 1.05 Glucose 140 H 104 Calcium 9.3 8.3 L Cardiac Enzymes 11/17/18 11/18/18 11/18/18 Range/Units 16:55 00:34 05:23 Troponin I < 0.03 < 0.03 < 0.03 (< 0.04) ng/mL 11/18/18 Range/Units 11:03 Troponin I < 0.03 (< 0.04) ng/mL Liver Function 11/18/18 Range/Units 00:34 Total Bilirubin 0.3 (0.3-1.0) mg/dL AST 21 (13-39) Units/L ALT 30 (7-52) Units/L Alkaline Phosphatase 77 (34-104) Units/L Albumin 3.7 (3.5-5.7) g/dL Urine 11/17/18 Range/Units 19:37 Urine Color Yellow (Yellow) Urine Clarity Clear (Clear) Urine pH 6.5 (5.0-8.0) pH Units Ur Specific [place] > 1.030 H (1.010-1.025) Urine Protein Negative (Neg-Trace) mg/dL Urine Glucose (UA) Normal (Normal) mg/dL - ABG Interpretation ABG results: PT/INR, D-dimer PT 10.8 Seconds (9.4-12.1) 11/18/18 00:34 D-Dimer 1987 ng/mLFEU (0-500) H 11/17/18 16:55 - Impressions Impressions Chest X-Ray 11/17/18 16:23 IMPRESSION: Normal appearing chest. No acute abnormality. No significant change from the prior study. D/ / Vijay Martinez MD / Vijya Martinez MD Interpreting Provider: Vijay Martinez MD Ankle X-Ray 11/17/18 17:01 IMPRESSION: No acute osseous abnormality of the right knee or right ankle. D/ /17/2018 17:41:08 Tre Dunbar MD / timo Interpreting Provider: Tre Dunbar MD Knee X-Ray 11/17/18 17:01 IMPRESSION: No acute osseous abnormality of the right knee or right ankle. D/ /17/2018 17:41:08 Tre Dunbar MD / timo Interpreting Provider: Tre Dunbar MD Chest CTA 11/17/18 17:28 IMPRESSION: No evidence of pulmonary embolism or acute pulmonary abnormality. D/ / Rajesh Naranjo MD / Rajesh Naranjo MD Interpreting Provider: Rajesh Naranjo MD Abdomen/Pelvis CT 11/17/18 17:31 IMPRESSION: No acute abnormality. D/ / Rajesh Naranjo MD / Rajesh Naranjo MD Interpreting Provider: Rajesh Naranjo MD Echocardiogram 11/18/18 22:47 Impressions: LVEF 60%. Mild left ventricular diastolic dysfunction. Normal right ventricular structure and function. Mild tricuspid regurgitation. No pulmonary hypertension. Left Ventricular Wall Motion: Rest Echo Findings All wall segments showed normal motion. Findings: Study Quality * Technically adequate exam. ECG Findings * Normal sinus rhythm. Left Ventricle * LVEF 60%. * Normal LV chamber size, wall thickness and systolic function. * Mild left ventricular diastolic dysfunction. Right Ventricle * Normal right ventricular structure and function. Left Atrium * Normal left atrial size. Right Atrium * Normal right atrial size. Interatrial Septum * Interatrial septum not well evaluated. * No evidence of PFO by color Doppler. Aortic Valve * Trileaflet aortic valve with normal function. * No aortic stenosis. * No aortic regurgitation. Mitral Valve * Normal mitral valve structure. * No mitral stenosis. * Trace mitral regurgitation. Tricuspid Valve * Normal tricuspid valve structure. * No tricuspid stenosis. * Mild tricuspid regurgitation. * Estimated RVSP is 21 mmHg. * Estimated RA pressure is 3 mmHg. * No pulmonary hypertension. Pulmonic Valve * Pulmonic valve is not well visualized. * No pulmonic stenosis. * No pulmonic regurgitation. Aorta * Normally sized aortic root. Pericardium * The pericardium appears normal. IVC * The IVC is not dilated. * > 50% respiratory change Consult Discharge Plan - Plan Referrals: Jayy Al MD [Primary Care Provider] - - Attending Attestation I examined this patient and my medical decision-making was reviewed with the Resident Physician Dr Bravo. I agree with the documented findings, disposition and treatment plan as described except to the extent set forth below. Ms Oleary is being observed chest pain and hypotension awake, feeling much better. no cp, pressure, sob or weakness. no lightheadedness or dizziness. notes for last week nighttime fevers 100-103. 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 discussed infectious vs malignancy is usual causes of fever [place] origin. discussed imaging of chest/abd/pelvis all be unremarkabell for either and ua neg for infection. She denies any rashes, wounds, gill changed from baseline or stiff neck. she rolled her ankle a couple days ago and it is strained but she denies any other painful joints or any joints with edema or increased warmth. discussed endocarditis as only other possible infectious etiology and she is scheduled an echo. she denies unintentional weight loss. discussed how cbc w diff had no abnormal cells or counts. gen- alert, awake,appears stated age cv- reg rate and rhythm, normal s1,s2, no murmurs appreciated, no le edema, no jvd lungs- ctabl, normal resp effort on room air abd- soft, non tender, non distended, + bs neuro- AAOx3, CN grossly intact, strenght intact thorughout and witnessed ambulating without any difficulty Hypotension resolved w IVF- suspected dehydration though cardiac work up as below, check uds Chest pain, resolved w EKG changes including TWI V1-V3, normal trop x3- appreciate cards input, stress echo pending, cont tele nehal resolved with IVFs and UA unremarkable- cont with oral hydration after MIVFs as ordered complete HLD- re confirmed on lipid panel, not on statin outpt, will discuss lifestyle modifications and repeat testing with PCP in 3 months to assess need for statin Fever of [place] origin- temp 100.4 overnight and she is reporting similar to 103 in last week always at same time of night- infectious work up negative, echo pending and will see if any vegetations, though she has no stigmata of endoca rditis, bl cxs ngtd, will cont to follow, CTA ruled out PE and she has no s/s of DVT, as far as malignancy as source of fever [place] origin cbc w diff is normal and she was rahman CT scanned on admit without note of suspicious findings, she did in july have a possible axillary lymph node evaluated that was determined to be artifact. If her work up here is negative will likely have her fu with pcp for further work up <Aysha Bravo L - Last Filed: 11/18/18 18:19> Hospitalist Progress Note - Encounter Date of Encounter: 11/18/18 Time of Encounter: 09:45 - Subjective Interval History: Patient is a 53-year-old female who presented to the ED with concerns of feeling well and chest tightness. In the ED patient also complained of chills and d ecreased appetite nausea and left flank pain. On arrival she was shown to be hypotensive. EKG, chest x-ray, chest CT, CT angio of the abdomen, xray of knee and ankle were completed. Imaging was negative, although ED staff indicated changes on EKG. Labs indicated an acute NEHAL, hypokalemia and dehydration for which patient was admitted. On exam today patient states she feels much better than yesterday. She denies chest pain. Only admits to elevated temperature at night for this she was given Tylenol by nursing staff. - Exam Vitals: Temp Pulse Resp BP Pulse Ox 100.4 F H 82 16 107/67 95 11/18/18 07:30 11/18/18 07:30 11/18/18 07:30 11/18/18 07:30 11/18/18 07:30 Exam: Gen: alert/oriented, no acute distress. Head: atraumatic, normocephalic. Neck: No thyromegaly appreciated. Neck supple no cervical lymphadenopathy. Resp: CTAB, no wheezing, rhonchi, or rhales. CV: RRR, Normal S1 and S2. No murmur, gallops, or rubs. GI/Abdominal exam: bowel sounds throughout, soft, non-tender, non- distended; no hepatosplenomegaly Skin: intact; no rashes, lesions, or bruising. Ext: No cyanosis or edema. mild tenderness to palpation of the L ankle. pulses +2/4 bilaterally UE and LE. Neuro: no focal deficits, cooperative with exam. - Assessment and Plan (1) Hypokalemia Current Visit: Yes Status: Resolved Assessment and Plan: Admission patientwith hypokalemia currently I hypokalemia has resolved potassium repletion. (2) Chest pain Current Visit: Yes Status: Acute Assessment and Plan: -Continue telemetry - Urine Drug screen -Cardiology consulted- appreciated cardio recs: -ACC/AHA heart risk score of 2.5% does not warrant statin therapy at this time. -Due to newly found EKG changes with h/o HTN upon admission ordered stress echo. - Stress echo completed: Shows 60% ejection fraction and mild left ventricular diastolic dysfunction. (3) NEHAL (acute kidney injury) Current Visit: Yes Status: Resolved Assessment and Plan: -Given 2 L of IV fluids. NEHAL 2/2 hypotension is resolving. - Hold Hypertensive medications (4) Fever of unknown origin Current Visit: Yes Status: Suspected Assessment and Plan: - infectious workup has been negative - Endocarditis work up has been negative including negative echo - Chest x-ray negative - axillary Lymph node found in July has been found to be non malignant. - Continue to follow-up with PCP for further workup (5) Dyslipidemia Current Visit: Yes Status: Acute Assessment and Plan: Patients current lipid panel shows high triglycerides and VLDL. Based on current ASCVD score of 2.8% patient does not qualify for current statin therapy - Suggest current lifestyle changes of exercise and diet modification. - follow up with PCP. - Time Spent with Patient Total time spent is greater than 50% in coordination of care (as documented) at patient's floor/unit and/or counseling patient: Internal Medicine: Result - Labs CBC & Chem 7: 11/18/18 00:34 11/18/18 00:34 Labs: Short CBC 11/17/18 11/18/18 Range/Units 16:55 00:34 WBC 4.2 L 3.4 L (4.3-11.1) K/mcL Hgb 14.5 13.4 (11.5-15.4) g/dL Hct 43.2 40.7 (35.3-44.9) % Plt Count 193 172 (140-400) K/mcL Neutrophils # 1.9 1.4 L (1.6-8.9) K/mcL BMP 11/17/18 11/18/18 16:55 00:34 Sodium 139 140 Potassium 3.2 L 3.6 Chloride 103 106 Carbon Dioxide 24 26 BUN 16 12 Creatinine 1.34 H 1.05 Glucose 140 H 104 Calcium 9.3 8.3 L Cardiac Enzymes 11/17/18 11/18/18 11/18/18 Range/Units 16:55 00:34 05:23 Troponin I < 0.03 < 0.03 < 0.03 (< 0.04) ng/mL Liver Function 11/18/18 Range/Units 00:34 Total Bilirubin 0.3 (0.3-1.0) mg/dL AST 21 (13-39) Units/L ALT 30 (7-52) Units/L Alkaline Phosphatase 77 (34-104) Units/L Albumin 3.7 (3.5-5.7) g/dL Urine 11/17/18 Range/Units 19:37 Urine Color Yellow (Yellow) Urine Clarity Clear (Clear) Urine pH 6.5 (5.0-8.0) pH Units Ur Specific [place] > 1.030 H (1.010-1.025) Urine Protein Negative (Neg-Trace) mg/dL Urine Glucose (UA) Normal (Normal) mg/dL - ABG Interpretation ABG results: PT/INR, D-dimer PT 10.8 Seconds (9.4-12.1) 11/18/18 00:34 D-Dimer 1987 ng/mLFEU (0-500) H 11/17/18 16:55 - Impressions Impressions Chest X-Ray 11/17/18 16:23 IMPRESSION: Normal appearing chest. No acute abnormality. No significant change from the prior study. D/ / Vijay Martinez MD / Vijay Martinez MD Interpreting Provider: Vijay Martinez MD Ankle X-Ray 11/17/18 17:01 IMPRESSION: No acute osseous abnormality of the right knee or right ankle. D/ /17/2018 17:41:08 Tre Dunbar MD / timo Interpreting Provider: Tre Dunbar MD Knee X-Ray 11/17/18 17:01 IMPRESSION: No acute osseous abnormality of the right knee or right ankle. D/ /17/2018 17:41:08 Tre Dunbar MD / bcarter Interpreting Provider: Tre Dunbar MD Chest CTA 11/17/18 17:28 IMPRESSION: No evidence of pulmonary embolism or acute pulmonary abnormality. D/ / Rajesh Naranjo MD / Rajesh Naranjo MD Interpreting Provider: Rajesh Naranjo MD Abdomen/Pelvis CT 11/17/18 17:31 IMPRESSION: No acute abnormality. D/ / Rajesh Naranjo MD / Rajesh Naranjo MD Interpreting Provider: Rajesh Naranjo MD <Martina Lee M - Last Filed: 11/18/18 14:08> (3) Chest pain Qualifiers: Chest pain type: precordial pain Qualified Code(s): R07.2 - Precordial pain <Aysha Bravo L - Last Filed: 11/18/18 18:19> (2) Chest pain Qualifiers: Chest pain type: precordial pain Qualified Code(s): R07.2 - Precordial pain
[2018-11-18] MEDS: Acetaminophen 325 MG TABLET PO PRN ×2 (08:43→14:37)
[2018-11-18] MEDS: Loratadine 10 MG TABLET PO SCH (08:43)
--- NOTE | 2018-11-18 09:53 | Cardiology Consult Note ---
<Arden Thompson N - Last Filed: 11/18/18 11:41> Date of Encounter: 11/18/18 Time of Encounter: 09:53 Assessment and Plan (1) Chest pain Current Visit: No Status: Acute 53-year-old female with PMH significant for hypertension, hyperlipidemia, and GERD presents complaining of chest pain described as tightness starting 1 day prior to arrival. Patient states it is worse with deep inspiration and is associated with fatigue and weakness. Pt found to be hypotensive on admission which corrected with IVF. HCTZ, Valsartan, and Atenolol held at this time due to episodes of hypotension. CXR, CTA, and CT abd without issues. EKG done in ED noted to have new onset of T wave inversion in leads V1-V3 which were not present on EKG from 07/06/18. PT with negative Echo, stress test, and Holter monitor from 11/2018 Echo ordered 11/17, will follow results Repeat EKG 11/18 shows resolution of T wave inversions -ACC/AHA heart risk score of 2.5% does not warrant statin therapy at this time. -Due to newly found EKG changes with h/o HTN upon admission will order stress echo on pt and follow results. Qualifiers: Chest pain type: unspecified Qualified Code(s): R07.9 - Chest pain, unspecified (2) HTN (hypertension) Current Visit: No Status: Chronic Qualifiers: Qualified Code(s): I15.0 - Renovascular hypertension (3) NEHAL (acute kidney injury) Current Visit: Yes Status: Resolved (4) Dehydration Current Visit: Yes Status: Resolved Discussion w patient/family: The assessment and plan as outlined above was discussed with the patient and/or family members who expressed understanding and agreement. All questions were answered. Thank you for involving us in the care of your patient. Please call with any questions. History of Present Illness Consult date: 11/18/18 Chief complaint: Chest Tightness History of present illness: Ms. Oleary is a 53 year old female with PMH significant for HLP, HTN, GERD, and migraines presenting with CP described as tightness earlier in the day. Pt states the pain is worse with deep inspiration. Pt also c/o dizziness and lightheaded feeling at this time. Pt states this is the first day she has had t his chest tightness. Pt is currently in no pain. Pt has had some dyspnea on exertion with 1 flight of stairs over the past few months, which she states was not the case before. Pt was found to be hypotensive in ED with BP 76/51 with billet bed operator of 1.34, which corrected to 107/67 after 2 Liters of NS. Pt has 3 Negative troponins, Negative CXR, CTA, and CT abd since admission. Pt did have a EKG which showed T wave inversions in V1-V3 which were not present on previous EKG from 07/06/18. Pts last cardiac work up was in November 2016 with a Negative stress test, Echo with EF of 55%, and negative 48 hr holter monitor. Past Med Surg Social Fam HX - Past Medical History Medical history: GERD, hyperlipidemia, hypertension, kidney stones, migraine Additional medical history: bowel obstruction-resolved with bowel rest Psychiatric history: anxiety, panic disorder - Past Surgical History Surgical History: appendectomy, breast surgery, , cholecystectomy, hysterectomy, orthopedic, other, other Additional surgical history: hammer toes - Social History Smoking Status: Never smoker Smokeless Tobacco Status: No Alcohol use: rarely Drug use: none - Family History Mother Adopted: No Living Status: Still Living Hx Family Cardiac Disorders: Yes (Hypertension, AAA, 2 Stents.) Hx Family Respiratory Disorders: No Hx Family Cancer: Yes (Skin) Hx Family GI Disorders: Yes (Stomach Ulcers,) Father Living Status: Still Living Hx Family Cardiac Disorders: No Paternal Grandfather Living Status: Hx Family Cardiac Disorders: Yes Medications and Allergies LORazepam [Ativan] 0.5 mg PO BID PRN 12/01/16 [History] Tizanidine HCl 2 mg PO HS PRN 12/27/16 [History] hydroCHLOROthiazide [Hydrochlorothiazide] 25 mg PO DAILY 12/27/16 [History] Atenolol 100 mg PO DAILY 10/09/18 [History] Buspirone HCl [Buspar] 10 mg PO DAILY 10/09/18 [History] Erenumab-Aooe [Aimovig Autoinjector] 70 mg SQ QMONTH 10/09/18 [History] Hyoscyamine SL [Levsin SL] 0.125 mg SL Q6H PRN 10/09/18 [History] Loratadine [Claritin] 10 mg PO DAILY 10/09/18 [History] Meclizine HCl [Verticalm] 25 mg PO DAILY PRN 10/09/18 [History] Ondansetron HCl [Zofran] 4 mg PO DAILY 10/09/18 [History] Rizatriptan Benzoate [Maxalt Web Application Dev Specialist] 10 mg PO DAILY PRN 10/09/18 [History] Valsartan [Diovan] 80 mg PO DAILY 10/09/18 [History] Allergy/AdvReac Type Severity Reaction Status Date / Time albuterol Allergy Palpitation Verified 12/27/16 09:24 s clavulanic acid Allergy Anaphylaxis Verified 12/27/16 09:24 [From Augmentin] metoclopramide [From Reglan] Allergy Confusion Verified 12/27/16 09:24 prochlorperazine AdvReac See Verified 10/12/18 13:47 [From Compazine] Comments All Systems Review: The remainder of the systems were reviewed and are negative - Constitutional Constitutional: fatigue, weakness, no anorexia, no weight loss - EENT Eyes: no blurred vision, no loss of vision - Cardiovascular Cardiovascular: chest pain at rest, dyspnea at rest, dyspnea on exertion, lightheadedness, no chest pain with exertion, no irregular heart rhythm, no leg edema, no rapid heart rate - Respiratory Respiratory: dyspnea, no cough - Gastrointestinal Gastrointestinal: no abdominal pain, no diarrhea, no nausea - Musculoskeletal Musculoskeletal: muscle weakness, no muscle cramps - Integumentary Integumentary: no erythema, no unusual bruising - Neurological Neurological: dizziness, no abnormal speech, no loss of vision, no syncope - Psychiatric Psychiatric: no anxiety, no depression, no panic attacks - Hematological/Lymphatic Hematologic/Lymphatic: no easy bleeding, no easy bruising Physical Examination Vital Signs, Last 4 Hours Temp Pulse Resp BP Pulse Ox 11/18/18 08:20 95 11/18/18 07:30 100.4 F H 82 16 107/67 95 General: Conversant, No Apparent Distress HEENT: Atraumatic, Normocephaly Neck: No JVD, Normal carotid pulses Cardiac: Reg Rate and Rhythm, Normal S1 and S2, No Murmur Lungs: Normal Breath Sounds, No Wheeze, Rales, Rhonchi Neuro: Alert and responsive, No focal deficits noted Abdomen: Soft, Non-Tender Skin: No rashes noted on visualized skin Musculoskeletal: No Chest Wall Tenderness Extremities: No Clubbing, No Cyanosis, No Edema Results 11/18/18 00:34 11/18/18 00:34 Lab Results 11/17/18 11/17/18 11/17/18 16:55 16:55 16:55 WBC 4.2 L Hgb 14.5 Hct 43.2 Plt Count 193 INR 1.0 APTT D-Dimer 1987 H Sodium 139 Potassium 3.2 L Chloride 103 Carbon Dioxide 24 BUN 16 Creatinine 1.34 H Glucose 140 H Calcium 9.3 Magnesium Total Bilirubin AST ALT Alkaline Phosphatase Troponin I < 0.03 11/18/18 11/18/18 11/18/18 00:34 00:34 00:34 WBC 3.4 L Hgb 13.4 Hct 40.7 Plt Count 172 INR 1.0 APTT 28.0 D-Dimer Sodium Potassium Chloride Carbon Dioxide BUN Creatinine Glucose Calcium Magnesium Total Bilirubin AST ALT Alkaline Phosphatase Troponin I < 0.03 11/18/18 11/18/18 00:34 05:23 WBC Hgb Hct Plt Count INR APTT D-Dimer Sodium 140 Potassium 3.6 Chloride 106 Carbon Dioxide 26 BUN 12 Creatinine 1.05 Glucose 104 Calcium 8.3 L Magnesium 1.9 Total Bilirubin 0.3 AST 21 ALT 30 Alkaline Phosphatase 77 Troponin I < 0.03 Consult Discharge Plan - Plan Referrals: Jayy Al MD [Primary Care Provider] - <BettylavonMary - Last Filed: 11/18/18 12:10> Date of Encounter: 11/18/18 - Attending Attestation I examined this patient and my medical decision-making was reviewed with the Resident Physician. I agree with the documented findings, disposition and treatment plan as described. Ms. Oleary presents with chest tightness possibly a result of demand ischemia in setting of hypotension. Hypotension of unclear etiology. Patient endorses adequate hydration. She has not accidentally taken extra doses of antihypertensives. However, is apparent that she has intentionally lost about 70 pounds. Troponin negative x4. ECG demonstrates mild changes in V1-V3 during admission. Given CV risk factors, symptoms and ECG changes, recommend stress testing for an ischemic evaluation. Patient is in agreement. Recommend low dose aspirin. Assessment and Plan Discussion w patient/family: The assessment and plan as outlined above was discussed with the patient and/or family members who expressed understanding and agreement. All questions were answered. Thank you for involving us in the care of your patient. Please call with any questions. History of Present Illness History of present illness: Ms. Oleary is a 53 year old female All Systems Review: The remainder of the systems were reviewed and are negative Physical Examination Vital Signs, Last 4 Hours Pulse Ox 11/18/18 08:20 95 Results 11/18/18 00:34 11/18/18 00:34 Lab Results 11/17/18 11/17/18 11/17/18 16:55 16:55 16:55 WBC 4.2 L Hgb 14.5 Hct 43.2 Plt Count 193 INR 1.0 APTT D-Dimer 1987 H Sodium 139 Potassium 3.2 L Chloride 103 Carbon Dioxide 24 BUN 16 Creatinine 1.34 H Glucose 140 H Calcium 9.3 Magnesium Total Bilirubin AST ALT Alkaline Phosphatase Troponin I < 0.03 11/18/18 11/18/18 11/18/18 00:34 00:34 00:34 WBC 3.4 L Hgb 13.4 Hct 40.7 Plt Count 172 INR 1.0 APTT 28.0 D-Dimer Sodium Potassium Chloride Carbon Dioxide BUN Creatinine Glucose Calcium Magnesium Total Bilirubin AST ALT Alkaline Phosphatase Troponin I < 0.03 11/18/18 11/18/18 11/18/18 00:34 05:23 11:03 WBC Hgb Hct Plt Count INR APTT D-Dimer Sodium 140 Potassium 3.6 Chloride 106 Carbon Dioxide 26 BUN 12 Creatinine 1.05 Glucose 104 Calcium 8.3 L Magnesium 1.9 Total Bilirubin 0.3 AST 21 ALT 30 Alkaline Phosphatase 77 Troponin I < 0.03 < 0.03
--- NOTE | 2018-11-18 16:36 | Electrocardiograph Report ---
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
--- NOTE | 2018-11-18 16:51 | Electrocardiograph Report ---
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
[2018-11-18 17:07] LABS: Amphetamine Screen,Urine Negative ng/mL (Cutoff=1000); Barbiturate Screen,Urine Negative ng/mL (Cutoff=200); Benzodiazepines Screen,Urine Negative ng/mL (Cutoff=200); Cannabinoid Screen,Urine Negative ng/mL (Cutoff = 50); Cocaine Screen,Urine Negative ng/mL (Cutoff= 300); Opiate Screen,Urine Negative ng/mL (Cutoff=300); Phencyclidine Screen,Urine Negative ng/mL (Cutoff=25)
[2018-11-19] MEDS: Acetaminophen 325 MG TABLET PO PRN (00:23)
[2018-11-19] MEDS: *HR* Heparin 5,000 UNIT/ML VIAL SQ SCH (06:12)
[2018-11-19 07:45] LABS: Hematocrit 41.5 % (35.3-44.9); Hemoglobin 13.6 g/dL (11.5-15.4); Mean Corpuscular HGB Conc 32.8 g/dL (31.6-35.5); Mean Corpuscular Hemoglobin 28.5 pg (28.0-33.3); Mean Corpuscular Volume 86.8 fL (83.0-100.0); Mean Platelet Volume 9.5 fL (9.4-12.4); Platelet Count 167 K/mcL (140-400); Red Blood Count 4.78 M/mcL (3.82-4.97); Red Cell Distribution Width 12.5 % (11.5-14.5); White Blood Count 3.4 K/mcL (4.3-11.1)
[2018-11-19 08:05] LABS: BUN/Creatinine Ratio 10 (6-26); Blood Urea Nitrogen 8 mg/dL (6-20); Calcium 8.7 mg/dL (8.6-10.3); Carbon Dioxide 29 mEq/L (23-29); Chloride 102 mEq/L (98-107); Glucose 105 mg/dL (70-105); Osmolality,Calculated 293 (280-300); Potassium 3.3 mEq/L (3.5-5.1); Sodium 142 mEq/L (136-145); eGFR For African Americans > 60 (> 60); eGFR For Non-African Americans > 60 (> 60)
[2018-11-19] MEDS: Loratadine 10 MG TABLET PO SCH (08:16)
--- NOTE | 2018-11-19 08:37 | Cardiology Consult Note ---
Date of Encounter: 11/19/18 Time of Encounter: 08:57 Assessment and Plan (1) Chest pain Current Visit: No Status: Acute 53-year-old female with PMH significant for hypertension, hyperlipidemia, and GERD presents complaining of chest pain described as tightness starting 1 day prior to arrival. Patient states it is worse with deep inspiration and is ass ociated with fatigue and weakness. Pt found to be hypotensive on admission which corrected with IVF. HCTZ, Valsartan, and Atenolol held at this time due to episodes of hypotension. CXR, CTA, and CT abd without issues. EKG done in ED noted to have new onset of T wave inversion in leads V1-V3 which were not present on EKG from 07/06/18. PT with negative Echo, stress test, and Holter monitor from 11/2018 Echo ordered 11/17, will follow results Repeat EKG 11/18 shows resolution of T wave inversions -ACC/AHA heart risk score of 2.5% does not warrant statin therapy at this time. -Due to newly found EKG changes with h/o HTN upon admission will order stress echo on pt and follow results. Qualifiers: Chest pain type: unspecified Qualified Code(s): R07.9 - Chest pain, unspecified (2) HTN (hypertension) Current Visit: No Status: Chronic Qualifiers: Qualified Code(s): I15.0 - Renovascular hypertension (3) NEHAL (acute kidney injury) Current Visit: Yes Status: Resolved (4) Dehydration Current Visit: Yes Status: Resolved Discussion w patient/family: The assessment and plan as outlined above was discussed with the patient and/or family members who expressed understanding and agreement. All questions were answered. Thank you for involving us in the care of your patient. Please call with any questions. History of Present Illness History of present illness: Ms. Oleary is a 53 year old female Past Med Surg Social Fam HX - Past Medical History Medical history: GERD, hyperlipidemia, hypertension, kidney stones, migraine Additional medical history: bowel obstruction-resolved with bowel rest Psychiatric history: anxiety, panic disorder - Past Surgical History Surgical History: appendectomy, breast surgery, , cholecystectomy, hysterectomy, orthopedic, other, other Additional surgical history: hammer toes - Social History Smoking Status: Never smoker Smokeless Tobacco Status: No Alcohol use: rarely Drug use: none - Family History Mother Adopted: No Living Status: Still Living Hx Family Cardiac Disorders: Yes (Hypertension, AAA, 2 Stents.) Hx Family Respiratory Disorders: No Hx Family Cancer: Yes (Skin) Hx Family GI Disorders: Yes (Stomach Ulcers,) Father Living Status: Still Living Hx Family Cardiac Disorders: No Paternal Grandfather Living Status: Hx Family Cardiac Disorders: Yes Medications and Allergies LORazepam [Ativan] 0.5 mg PO BID PRN 12/01/16 [History] Tizanidine HCl 2 mg PO QAM 12/27/16 [History] hydroCHLOROthiazide [Hydrochlorothiazide] 25 mg PO DAILY 12/27/16 [History] Atenolol 100 mg PO DAILY 10/09/18 [History] Buspirone HCl [Buspar] 10 mg PO DAILY 10/09/18 [History] Erenumab-Aooe [Aimovig Autoinjector] 70 mg SQ Q2W 10/09/18 [History] Hyoscyamine SL [Levsin SL] 0.125 mg SL Q6H PRN 10/09/18 [History] Loratadine [Claritin] 10 mg PO DAILY 10/09/18 [History] Meclizine HCl [Verticalm] 25 mg PO DAILY PRN 10/09/18 [History] Ondansetron HCl [Zofran] 4 mg PO TID PRN 10/09/18 [History] Rizatriptan Benzoate [Maxalt X Ray Equipment Tester] 10 mg PO DAILY PRN 10/09/18 [History] Valsartan [Diovan] 80 mg PO DAILY 10/09/18 [History] Allergy/AdvReac Type Severity Reaction Status Date / Time albuterol Allergy Palpitation Verified 12/27/16 09:24 s clavulanic acid Allergy Anaphylaxis Verified 12/27/16 09:24 [From Augmentin] metoclopramide [From Reglan] Allergy Confusion Verified 12/27/16 09:24 prochlorperazine AdvReac See Verified 10/12/18 13:47 [From Compazine] Comments All Systems Review: The remainder of the systems were reviewed and are negative Physical Examination Vital Signs, Last 4 Hours Temp Pulse Resp BP Pulse Ox 11/19/18 06:35 98.4 F 71 18 113/76 97 11/19/18 04:52 98.5 F 82 18 112/78 97 Results 11/19/18 06:52 11/19/18 06:52 Lab Results 11/18/18 11/19/18 11/19/18 11:03 06:52 06:52 WBC 3.4 L Hgb 13.6 Hct 41.5 Plt Count 167 Sodium 142 Potassium 3.3 L Chloride 102 Carbon Dioxide 29 BUN 8 Creatinine 0.82 Glucose 105 Calcium 8.7 Troponin I < 0.03 Consult Discharge Plan - Plan Referrals: Jayy Al MD [Primary Care Provider] -
[2018-11-19 08:56] LABS: Lymphocytes # 1.8 K/mcL (0.6-4.6); Monocytes # 0.4 K/mcL (0.0-1.3); Neutrophils # 1.1 K/mcL (1.6-8.9); Reactive Lymphocytes Present (Not Present)
[2018-11-19 08:57] LABS: Platelet Estimate Normal (Normal)
[2018-11-19] MEDS ORDERED: Aspirin 81 MG TAB.CHEW PO SCH (09:00)
--- NOTE | 2018-11-19 09:21 | Cardiology Progress Note ---
<Arden Thompson N - Last Filed: 11/19/18 11:42> Date of Encounter: 11/19/18 Time of Encounter: 09:21 Assessment and Plan (1) Chest pain Current Visit: No Status: Acute 53-year-old female with PMH significant for hypertension, hyperlipidemia, and GERD presents complaining of chest pain described as tightness starting 1 day prior to arrival. Patient states it is worse with deep inspiration and is associated with fatigue and weakness. Pt found to be hypotensive on admission which corrected with IVF. HCTZ, Valsartan, and Atenolol held at this time due to episodes of hypotension. CXR, CTA, and CT abd without issues. EKG done in ED noted to have new onset of T wave inversion in leads V1-V3 which were not present on EKG from 07/06/18. PT with negative Echo, stress test, and Holter monitor from 11/2018 Echo ordered 11/17, EF of 60% Repeat EKG 11/18 shows resolution of T wave inversions -ACC/AHA heart risk score of 2.5% does not warrant statin therapy at this time. -Patient's hypotension has resolved with blood pressures remaining within normal limits off medications. Would advise holding blood pressure medications on discharge with patient documenting home blood pressures and having patient follow up with PCP for reevaluation. -Patient stress echo was unable to be completed due to shortness of breath without chest pain. Although patient was only able to get to 74% of predicted max heart rate patient remained in NSR without evidence of arrhythmias, blood pressure with normal response, and exercise capacity was average. -At this time due to patient's EKG changes being transient, negative cardiac workup, and results of stress echo there is no evidence of cardiac cause of patient's chest discomfort. -If chest discomfort returns would suggest patient follow-up with PCP to have outpatient stress test. Qualifiers: Chest pain type: unspecified Qualified Code(s): R07.9 - Chest pain, unspecified (2) HTN (hypertension) Current Visit: No Status: Chronic Qualifiers: Qualified Code(s): I15.0 - Renovascular hypertension (3) NEHAL (acute kidney injury) Current Visit: Yes Status: Resolved (4) Dehydration Current Visit: Yes Status: Resolved Discussion w patient/family: The assessment and plan as outlined above was discussed with the patient and/or family members who expressed understanding and agreement. All questions were answered. Thank you for involving us in the care of your patient. Please call with any questions. Objective Vital Signs, Last 4 Hours Temp Pulse Resp BP Pulse Ox 11/19/18 06:35 98.4 F 71 18 113/76 97 General: Conversant, No Apparent Distress HEENT: Atraumatic, Normocephaly, Mucus Membranes Moist Neck: No JVD, Normal carotid pulses Cardiac: Reg Rate and Rhythm, Normal S1 and S2, No Murmur Lungs: Normal Breath Sounds, No Wheeze, Rales, Rhonchi Neuro: Alert and responsive, No focal deficits noted Abdomen: Soft, Non-Tender Skin: No rashes noted on visualized skin Musculoskeletal: No Chest Wall Tenderness Extremities: No Clubbing, No Cyanosis, No Edema, Normal Pulses Results 11/19/18 06:52 11/19/18 06:52 Lab Results 11/18/18 11/19/18 11/19/18 11:03 06:52 06:52 WBC 3.4 L Hgb 13.6 Hct 41.5 Plt Count 167 Sodium 142 Potassium 3.3 L Chloride 102 Carbon Dioxide 29 BUN 8 Creatinine 0.82 Glucose 105 Calcium 8.7 Troponin I < 0.03 Consult Discharge Plan - Plan Additional Instructions: Your cardiac was normal, including your stress test. Your low blood pressure corrected with fluids and holding of all your BP meds. Your BP was normal this admission without them. YOU MUST FOLLOW UP WITH YOUR PCP TO DETERMINE IF THEY NEED RESTARTED OR STARTED AT LOWER DOSES. Hold them until seen in follow up. CALL TODAY to schedule you appt to be seen in the next week. You noted fevers at home. You had one isolated temp of 100.4. No infectious cause was found. Follow up with your PCP if there are further fevers at home. Recommend increased intake of potassium containing foods. No prescription is needed at this time. Please discuss further with your PCP. Referrals: Jayy Al MD [Primary Care Provider] - 11/25/18 9:15 am <Mary Hamilton - Last Filed: 11/19/18 12:35> Date of Encounter: 11/19/18 Assessment and Plan Discussion w patient/family: I examined this patient and my medical decision-making was reviewed with the Resident Physician. I agree with the documented findings, disposition and treatment plan as described. Ms. Oleary underwent stress echo which demonstrated no high risk findings but was unable to reach target heart rate. She denies recurrent chest pain. Ruled out for ACS. Recommend low dose aspirin. No indication for statin based on ASCVD risk calculator. Recommend outpatient PCP follow up. If recurrent chest pain, consider alternative stress modality. If severe/persistent chest pain, recommend seeking emergent medical treatment. Will sign off. Patient in agreement with plan. Objective Vital Signs, Last 4 Hours Temp Pulse Resp BP Pulse Ox 11/19/18 10:56 98.5 F 82 17 111/70 96 Results 11/19/18 06:52 11/19/18 06:52 Lab Results 11/19/18 11/19/18 06:52 06:52 WBC 3.4 L Hgb 13.6 Hct 41.5 Plt Count 167 Sodium 142 Potassium 3.3 L Chloride 102 Carbon Dioxide 29 BUN 8 Creatinine 0.82 Glucose 105 Calcium 8.7
[2018-11-19 10:57] VITALS: BP 111/70
--- NOTE | 2018-11-19 11:02 | Discharge Summary ---
<Aysha Bravo - Last Filed: 11/19/18 11:01> Orders not resulted at time of discharge: Pending orders 11/17/18 18:32 Culture,Blood [BC] Stat Date of Encounter: 11/19/18 - Discharge Diagnosis (1) Hypokalemia Status: Resolved (2) Chest pain Status: Acute Qualifiers: Chest pain type: precordial pain Qualified Code(s): R07.2 - Precordial pain (3) NEHAL (acute kidney injury) Status: Resolved (4) Fever of unknown origin Status: Suspected (5) Dyslipidemia Status: Acute Hospital course: Ms. Oleary is a 53 year old female - Time Spent with Patient Total time spent providing and/or coordinating discharge services: - Discharge Medications Prescriptions: New Aspirin 81 mg PO DAILY #30 tab.chew Continued LORazepam [Ativan] 0.5 mg PO BID PRN PRN Reason: Anxiety Tizanidine HCl 2 mg PO QAM Loratadine [Claritin] 10 mg PO DAILY Buspirone HCl [Buspar] 10 mg PO DAILY Hyoscyamine SL [Levsin Sl] 0.125 mg SL Q6H PRN PRN Reason: Diarrhea Rizatriptan Benzoate [Maxalt Staff Nurse Midwife] 10 mg PO DAILY PRN PRN Reason: Migraine Headache Meclizine HCl [Verticalm] 25 mg PO DAILY PRN PRN Reason: Vertigo Ondansetron HCl [Zofran] 4 mg PO TID PRN PRN Reason: Nausea Erenumab-Aooe [Aimovig Autoinjector] 70 mg SQ Q2W Discontinued hydroCHLOROthiazide [Hydrochlorothiazide] 25 mg PO DAILY Atenolol 100 mg PO DAILY Valsartan [Diovan] 80 mg PO DAILY Home Medications: LORazepam [Ativan] 0.5 mg PO BID PRN 12/01/16 [History] Tizanidine HCl 2 mg PO QAM 12/27/16 [History] Buspirone HCl [Buspar] 10 mg PO DAILY 10/09/18 [History] Erenumab-Aooe [Aimovig Autoinjector] 70 mg SQ Q2W 10/09/18 [History] Hyoscyamine SL [Levsin Sl] 0.125 mg SL Q6H PRN 10/09/18 [History] Loratadine [Claritin] 10 mg PO DAILY 10/09/18 [History] Meclizine HCl [Verticalm] 25 mg PO DAILY PRN 10/09/18 [History] Ondansetron HCl [Zofran] 4 mg PO TID PRN 10/09/18 [History] Rizatriptan Benzoate [Maxalt Staff Nurse Midwife] 10 mg PO DAILY PRN 10/09/18 [History] Aspirin 81 mg PO DAILY #30 tab.chew 11/19/18 [Rx] Allergies/Adverse Reactions: Allergy/AdvReac Type Severity Reaction Status Date / Time albuterol Allergy Palpitation Verified 12/27/16 09:24 s clavulanic acid Allergy Anaphylaxis Verified 12/27/16 09:24 [From Augmentin] metoclopramide [From Reglan] Allergy Confusion Verified 12/27/16 09:24 prochlorperazine AdvReac See Verified 10/12/18 13:47 [From Compazine] Comments Date of admission: 11/17/18 20:24 Primary care physician: Jayy Al MD Consults: 11/17/18 22:47 Consult to Cardiology [CONS] Routine Comment: Consulting Provider: Cardiology [facility]mes Reason for Consult: chest pain; ischemic changes on EKG; stress test 1 year ago Call Completed: No - Constitutional Vitals: Temp Pulse Resp BP Pulse Ox 98.5 F 82 17 111/70 96 11/19/18 10:56 11/19/18 10:56 11/19/18 10:56 11/19/18 10:56 11/19/18 10:56 General appearance: Present: cooperative, A&O X 3, pleasant, no acute distress, answers questions appropriately - Patient Status Disposition: Home, Self-Care Condition: Good - Discharge Instructions Follow Up With: Jayy Al MD [Primary Care Provider] - 11/25/18 9:15 am Additional Instructions: Your cardiac was normal, including your stress test. Your low blood pressure corrected with fluids and holding of all your BP meds. Your BP was normal this admission without them. YOU MUST FOLLOW UP WITH YOUR PCP TO DETERMINE IF THEY NEED RESTARTED OR STARTED AT LOWER DOSES. Hold them until seen in follow up. CALL TODAY to schedule you appt to be seen in the next week. You noted fevers at home. You had one isolated temp of 100.4. No infectious cause was found. Follow up with your PCP if there are further fevers at home. Recommend increased intake of potassium containing foods. No prescription is needed at this time. Please discuss further with your PCP. <Martina Lee - Last Filed: 11/20/18 06:27> - NOTES TO OUTPATIENT PROVIDER Notes to Outpatient Provider: here with chest pain, normal stress echo but didn't achieve target HR, cards rec for asa and if sxs recur that alternative mode of stress testing should be done. She did not require statin. She noted home nightly fevers. one time temp 100.4 here and infectious w/u extensive and neg. Please follow outpt for addl w/u if fevers persist. Pt would like to discuss shelter Kcl supplementation w you. We recommended increased oral intake. Her BP was low in ED. All sxs improved with hydration. She was normotensive thorughout admit without any BP meds. They are held on dc until she sees you in follow up. Orders not resulted at time of discharge: Pending orders 11/17/18 18:32 Culture,Blood [BC] Stat Date of Encounter: 11/20/18 Time of Encounter: 09:00 - Discharge Diagnosis (1) Chest pain Priority: Primary Status: Resolved Qualifiers: Chest pain type: precordial pain Qualified Code(s): R07.2 - Precordial pain (2) NEHAL (acute kidney injury) Priority: Secondary Status: Resolved (3) Dehydration Priority: Secondary Status: Resolved (4) Hypokalemia Priority: Secondary Status: Resolved (5) Dyslipidemia Priority: Secondary Status: Acute (6) Fever of unknown origin Priority: Secondary Status: Suspected Hospital course: Ms. Oleary is a 53 year old female who was admitted with chest pain and hypot ension. She had resolution of symptoms with IVFs and remained at her baseline throughout her admission. She had a cardiac work up, with cards consulted for TWI on admitting ekg. Stress echo showed no signs of ischemia, though she did not achieve target heart rate. Cards recommended initiating aspirin and outpt fu with PCP. She had CT imaging that showed no evidence of PE or dissection. Infectious work up was negative. She reported nighttime fevers at home as high as 103, though she had one isolated temp 100.4 this admission, overnight. Again infectious work up was negative and extensive chest/abd/pelvis imaging on admission was negative as well. She was encouraged to follow up with pcp for further work up if she had fevers at home, though after one temp elevation during admit she had no further elevated temps. She did not require any antihypertensives throughout admit and was discharged with them held until seen in follow up with PCP. Discharge discussed with: patient - Time Spent with Patient Total time spent providing and/or coordinating discharge services: Date of admission: 11/17/18 20:24 Primary care physician: Jayy Al MD Consults: 11/17/18 22:47 Consult to Cardiology [CONS] Routine Comment: Consulting Provider: Cardiology Yasmin Reason for Consult: chest pain; ischemic changes on EKG; stress test 1 year ago Call Completed: No Discharging clinician: Martina Lee - Constitutional Vitals: Temp Pulse Resp BP Pulse Ox 98.5 F 82 17 111/70 96 11/19/18 10:56 11/19/18 10:56 11/19/18 10:56 11/19/18 10:56 11/19/18 10:56 Exam: (This exam is attending exam as resident did not complete this section of dc summary) gen- alert, awake,appears stated age cv- reg rate and rhythm, normal s1,s2, no murmurs lungs- ctabl abd- soft, non tender, non distended neuro- AAOx3, CN grossly intact - Patient Status Functional capacity at discharge: independent ambulation Overall status at discharge: patient is back to baseline - Diet and Activity Activity: increase activity as tolerated Diet: advance to your usual diet - Attending Attestation I examined this patient and my medical decision-making was reviewed with the Resident Physician Dr Bravo. I agree with the documented findings, disposition and treatment plan as described except to the extent set forth below. Ms Oleary is being observed chest pain and hypotension which have both resolved. She will follow up with PCP upon discharge awake, no cp ,palpitations or presyncope. dc plan discussed in detail and all questions answered gen- alert, awake,appears stated age cv- reg rate and rhythm, normal s1,s2, no murmurs lungs- ctabl abd- soft, non tender, non distended neuro- AAOx3, CN grossly intact Hypotension resolved w IVF- suspected dehydration Chest pain, atypical, resolved w EKG changes including TWI V1-V3, normal trop x3, stress echo without ischemic changes though she did not reach target heart rate- cards rec to cont asa, no statin need, and fu with PCP and if sxs recur further follow up for alternative testing modality nehal resolved with IVFs HLD- re confirmed on lipid panel, not on statin outpt, lifestyle modifications and repeat testing with PCP in 3 months to assess need for statin Fever of [place] origin- temp 100.4 x1 while here and no identifiable cause, fu with pcp hypokalemia- repleted PO, increase potassium rich food intake and fu with pcp time spent on dc 45 min
== END 2018-11-19 16:03 | disposition home or self-care (01) ==
LOC: EMEROOARM 15:57 → 2ANU 15:57 → SUATTDRO 20:24 → 2ANU 21:05
PROVIDERS: ADMIT Pediatrics; ATTEND Internal Medicine